=== PATIENT | female | born 1995 | race Caucasian/White ===

== ENCOUNTER 2025-01-27 19:23 | Emergency (ER) | payer OTHER, SELFPAY ==
[2025-01-27 19:30] VITALS: BP 123/72; PULSE 80; RESP 16; TEMP 36.6; O2SAT 99; BMI 31.8
--- OUTSIDE RECORDS SUMMARY | 2025-01-27 19:40 | XMS_ITS | Continuity of Care Document ---
Author Name [facility] Organization [facility] Care Team Providers Care Plant Health Care Technician Name Role Phone [facility] Unavailable Unavailable Problems Combined list of problems from [facility] facilities. It does not include entries that were removed or entered in error. Problem Status Onset Date Problem Type Date of Resolution Comments Source Gestation period, 19 weeks Active Condition 0075C-Ge neral [facility] Rubella non-immune Active Condition 0075C-General [facility] Medications Combined list of outpatient medications from [facility] facilities.Medications provided include 1) outpatient medications from the last 15 months, and 2) patient-reported medications. Medication Details Route Status Patient Instructions Prescription Expires Prescription Number Last Dispense Date Ordering Provider Order Date Order Qty Source acetaminoph en 325 mg oral tablet 1-2 tab(s), Oral, every 6 hr, PRN pain or fever, X 7 days, # 24 tab(s), 0 total refill(s ), Acute, 04/18/21 4:12:00 PM CDT, Pharmacy : [facility] Oral (given by mouth) Complet ed 04/18/2021 2020 24.0 0075A-G eneral [facility] azithromyci n 250 mg oral tablet 0 total refill(s ) Discont inued 01/10/20212020 No Facilit y Access benzonatate 200 mg oral capsule benzonat ate 200 mg oral capsule Start Date: 08/15/20 Stop Date: 01/10/21 Status: Disconti marci Repeat number: 1 Discont inued 01/10/20212020 No Facilit y Access cephalexin 500 mg oral capsule 0 total refill(s ) Discont inued 01/10/20212020 No Facilit y Access Colace 100 mg oral capsule 1 cap(s), Oral, BID, PRN constipa tion, # 180 cap(s), 3 total refill(s ), [facility], Pharmacy : [facility] Oral (given by mouth) Ordered 08/12/2022 2 2021 180.0 0075A-G eneral Peter Hernandez [facility] Diflucan 150 mg oral tablet 1 tab(s), Oral, As Directed , X 1 days, # 1 tab(s), 0 total refill(s ), Acute, 04/12/21 4:13:00 PM CDT, Pharmacy : [facility] Oral (given by mouth) Complet ed 04/12/2021 1 2020 1.0 0075A-G eneral [facility] ETONOGESTRE L 68 MG SUBQ IMPL ETONOGES TREL 68 MG SUBQ IMPL Start Date: 08/21/20 Stop Date: 01/10/21 Status: Disconti marci Repeat number: 1 Discont inued 01/10/20212020 No Facilit y Access fluconazole 150 mg oral tablet 0 total refill(s ) Discont inued 01/10/20212020 No Facilit y Access Loestrin 21 07/18 oral tablet 1 tab(s), Oral, Daily, # 84 tab(s), 3 total refill(s ), [facility], Pharmacy : [facility] Oral (given by mouth) Discont inued 05/22/2021 1 2020 84.0 0075C-G enradhika Hernandez [facility] MiraLax oral powder for reconstitut ion See Instruct ions, Dissolve and drink 1 capful (17g) of powder in 4 to 8 ounces of liquid once daily, # 510 g, 1 total refill(s ), Acute, 08/12/22 12:00:00 AM [employer]IMAL [employer]YSIOLOG[employer] TE[employer]ER, Pharmacy : [facility] ed 08/12/2022 2 2022 510.0 0075A-G eneral [facility] naproxen 500 mg oral tablet 1 tab(s), Oral, BID, with food, # 20 tab(s), 0 total refill(s ), Acute, 04/14/21 12:00:00 AM CDT, Pharmacy : [facility] Oral (given by mouth) Complet ed 04/14/2021 1 2020 20.0 [facility] norethindro ne 0.35 mg oral tablet norethin drone 0.35 mg oral tablet Start Date: 05/14/20 Stop Date: 01/10/21 Status: Disconti nued Repeat number: 1 Discont inued 01/10/20212020 No Facilit y Access PARoxetine 20 mg oral tablet PARoxeti ne 20 mg oral tablet Start Date: 06/13/20 Stop Date: 01/10/21 Status: Disconti nued Repeat number: 1 Discont inued 01/10/20212020 No Facilit y Access Multivitami ns with FA 0.8 mg oral tablet 1 tab(s), Oral, Daily, # 100 tab(s), 3 total refill(s ), [facility], Pharmacy : [facility] Oral (given by mouth) Ordered 2 2021 100.0 0075C-G [facility] Multivitami ns with Vitamin B Complex, Vitamin C, Minerals and L-Methylfol ate oral capsule 1 cap(s), Oral, Daily, # 100 cap(s), 3 total refill(s ), [facility], Pharmacy : [facility] Oral (given by mouth) Complet ed 08/27/2021 1 2021 100.0 0075C-G [facility] sertraline 25 mg oral tablet sertrali ne 25 mg oral tablet Start Date: 05/14/20 Stop Date: 01/10/21 Status: Disconti numartín Repeat number: 1 Discont inued 01/10/20212020 No Facilit y Access Sudafed 12-Hour 120 mg oral tablet, extended release 1 tab(s), Oral, every 12 hr, PRN congesti on, # 20 tab(s), 1 total refill(s ), [facility], Pharmacy : [facility] Oral (given by mouth) Discont inued 05/22/2021 1 2020 20.0 [facility] SUMAtriptan 25 mg oral tablet See Instruct ions, Take 1 tablet by mouth at onset of migraine headache . May repeat dose after 2 hours if needed. Max of 100mg within 24 hours, # 18 tab(s), 1 total refill(s ), Ignacia pinon, Pharmacy : [facility] Discont inued 05/22/2021 1 2020 18.0 [id number][facility] verapamil 120 mg/12 hours oral tablet, extended release 1 tab(s), Oral, Daily, # 90 tab(s), 0 total refill(s ), Ignacia pinon, Pharmacy : [facility] Oral (given by mouth) Discont inued 05/22/2021 1 2020 90.0 [id number][facility] Allergies, Adverse Reactions, Alerts Combined list of allergies from [facility] and [facility] facilities. It does not include entries that were removed or entered in error. Substance Category Reaction Severity Reaction type Status Date Reported Comments Source No Known Allergies Drug allergy (disorder) active 08/21/2020 [place], [place] Results Combined list of recent chemistry, hematology and other laboratory results from [facility] and [facility], ranging from 15 months to all on record, depending upon the facility. Order Name Results Value Reference Range Date Interpretation Specimen Comments Source Screening AFP Tetra Gest. Age on Sobia Date 19.4 wk 08/[address] [place] [address] Screening AFP Tetra Test Results: *Screen Negative * 08/27 [facility] [place] Screening AFP Tetra Results LC Report 08/27 [facility] [place] Screening AFP Tetra Gestat. Age Based On TOMA 08/27 Result Comment: 01/18/2022 [facility] [place] Screening AFP Tetra uE3 Value LC 1.65 ng/mL 08/[address] [place] [address] Screening AFP Tetra hCG MoM LC 0.86 08/27 0075A-Ge neral [facility] [place] [address] m[iU]/mL 08/27 0075A-Ge neral Peter Wood [facility] Screening AFP Tetra AFP MoM LC 0.73 08/27 0075A-Ge neral Peter Wood [facility] Screening AFP Tetra AFP Value LC 36.3 ng/mL 08/27 0075A-Ge neral Peter Wood [facility] [place] Screening AFP Tetra Other LC Comment 08/27 Result Comment: Information Other Indication: No Free Text (Additional Information ): Not Provided Prior with Down Syndrome: No History of NTD: No Prior Down Syndrome/ON TD Screening during current : No Prior First Trimester Testing: No Prior Second Trimester Testing: No Previously Elevated: No 0075A-Ge neral Peter Wood [facility] Screening AFP Tetra Insulin Dep Diabetes LC No 08/27 0075A-Ge neral Peter [facility] [place] Screening AFP Tetra Weight LC 165 [lb_ap] 08/27 0075A-Ge neral [facility] Screening AFP Tetra Race LC Caucasia n 08/27 0075A-Ge neral [facility] Screening AFP Tetra Maternal Age At TOMA LC 25.1 a 08/27 0075A-Ge neral [facility] [place] Screening AFP Tetra Multiple Gestation LC No 08/27 0075A-Ge neral [facility] [place] Screening Comments LC Comment 08/27 Result Comment: Marge Obrien, Ph.D., [facility] Director References: Available Upon Request. Multiples Of Median Cutoffs Abbreviatio n Definitions For AFP Elevations IDD- Insulin Dep Diabetes Roach 2.5 Black 2.8 OSBR- Open Spina Bifida IDD 2.0 Twins 4.5 Risk DSR Cutoff 1:270 DSR- Down Syndrome Risk T18 Cutoff 1:100 T18- Trisomy 18 Down Syndrome and Trisomy 18 screening are considered Investigati onal For further inquiries contact [facility] at [phone] YAYA. Performed At: 01 [facility] [address] [facility] [place], [place] [id number] Deepali Pulido [facility] Ph:[phone] [id number]-Ge neral Peter Wood [facility] Screening AFP Tetra Interpreta tion LC Comment 08/27 Result Comment: Interpretat ion: Screen Negative This result is screen negative for OSB, Down Syndrome and Trisomy 18. The AFP MoM and patient specific risks calculated are based on the gestational age and the clinical information provided. This test can identify up to 80% of open neural tube defects. Closed neural tube defects and some open defects may not be detected by this test. The combination of maternal age, AFP, hCG, uE3, and BANDAR identifies 75-80% of Down Syndrome. The combination of maternal age, AFP, hCG and uE3 identifies 60% of Trisomy 18 pregnancies . The [employer] recommends amniocentes is be offered to women age 35 and older. Recalculati ons are not recommended when gestational dating by LMP and ultrasound are within 10 days. [id number]-Ge neral Peter Wood [facility] Screening AFP Tetra T18 (By Age) LC 1:3999 08/27 0075A-Ge neral Peter [facility] [place] Screening AFP Tetra T18 Risk LC Not increase d 08/27 0075A-Ge neral [facility] Screening AFP Tetra DSR (By Age) 1 IN LC 1026 08/27 0075A-Ge neral [facility] [place] Screening AFP Tetra DSR (Second Trimester) 1 [place] [address] 08/27 0075A-Ge neral [facility] Screening AFP Tetra OSBR [place] 1 [place] [address] 08/27 0075A-Ge neral [facility] Screening AFP Tetra BANDAR MoM LC 0.45 08/27 0075A-Ge neral [facility] [place] Screening AFP Tetra BANDAR Value LC 73.02 pg/mL 08/27 0075A-Ge neral [facility] Screening AFP Tetra uE3 MoM LC 0.85 08/27 0075A-Ge neral [facility] [place] Screening Insulin Dependent. LC N (08/27/21 3:12 PM) 08/27 N 0075A-Ge neral Peter Wood [facility] [place] Screening [place] Date of Calc (YYYYMMDD) .LC [id number] 0075A-Ge neral [facility] Screening Gest Age (Decimal, ##.#).LC 19.3 08/27 0075A-Ge neral Peter Wood [facility] Screening FHX NTD.LC N (08/27/21 3:12 PM) 08/27 N 0075A-Ge neral Peter Wood [facility] Screening Prior With Down Syndrome.L C N (08/27/21 3:12 PM) 08/27 N 0075A-Ge neral Peter Wood [facility] [place] Screening [place] Calculatio n Method. TOMA/EDC (08/27/21 3:12 PM) 08/27 N 0075A-Ge neral Peter Wood [facility] Screening Nbr of Fetuses (#). 1 08/27 0075A-Ge neral Peter Wood [facility] Screening TOMA/EDC Date (YYYYMMDD) . [id number] 0075A-Ge neral Peter Wood [facility] Screening Previously Elevated AFP. N (08/27/21 3:12 PM) 08/27 N 0075A-Ge neral Peter Wood [facility] [place] Screening Other Indication s.LC N (08/27/21 3:12 PM) 08/27 N 0075A-Ge neral Peter Wood [facility] Screening Donor Egg. N (08/27/21 3:12 PM) 08/27 N 0075A-Ge neral Peter Wood [facility] Screening Prior First Trimester Testing. N (08/27/21 3:12 PM) 08/27 N 0075A-Ge neral Peter Wood [facility] Screening Prior Down Syndrome/O NDT Screen. N (08/27/21 3:12 PM) 08/27 N 0075A-Ge neral Peter Wood [facility] [place] Screening AFP Tetra Test Results: See interpre tation. 07/25 0075A-Ge neral Peter Wood [facility] [place] Screening AFP Tetra Gestat. Age Based On TOMA 07/25 Result Comment: 01/18/2022 0075A-Ge neral Peter Wood [facility] [place] Screening AFP Tetra Gest. Age on Sobia Date 14.7 wk 07/25 0075A-Ge neral Peter Wood [facility] Screening AFP Tetra Results LC Report 07/25 0075A-Ge neral Peter Wood [facility] Screening AFP Tetra DSR (Second Trimester) 1 IN LC See interpre tation. 07/25 0075A-Ge neral Peter Wood [facility] [place] Screening AFP Tetra OSBR Risk 1 IN LC See interpre tation. 07/25 0075A-Ge neral Peter Wood [facility] Screening AFP Tetra T18 (By Age) LC 1:3999 07/25 0075A-Ge neral Peter Wood [facility] Screening AFP Tetra T18 Risk LC See interpre tation. 07/25 0075A-Ge neral Peter Wood [facility] Screening AFP Tetra DSR (By Age) 1 IN LC 1026 07/25 0075A-Ge neral Peter Wood [facility] Screening AFP Tetra uE3 Value LC 0.37 ng/mL 07/25 0075A-Ge neral Peter Wood [facility] Screening AFP Tetra hCG MoM LC See interpre tation. 07/25 0075A-Ge neral Peter Wood [facility] [place] [address] m[iU]/mL 07/25 0075A-Ge neral [facility] [place] Screening AFP Tetra BANDAR MoM LC See interpre tation. 07/25 0075A-Ge neral Peter Wood [facility] Screening AFP Tetra BANDAR Value LC 127.57 pg/mL 07/25 0075A-Ge neral Peter Wood [facility] Screening AFP Tetra uE3 MoM LC See interpre tation. 07/25 0075A-Ge neral Peter Wood [facility] Screening Comments LC Comment 07/25 Result Comment: Marge Obrien, Ph.D., [facility] Director References: Available Upon Request. Multiples Of Median Cutoffs Abbreviatio n Definitions For AFP Elevations IDD- Insulin Dep Diabetes Roach 2.5 Black 2.8 OSBR- Open Spina Bifida IDD 2.0 Twins 4.5 Risk DSR Cutoff 1:270 DSR- Down Syndrome Risk T18 Cutoff 1:100 T18- Trisomy 18 Down Syndrome and Trisomy 18 screening are considered Investigati onal For further inquiries contact [facility] at [phone] YAYA. [facility]formed At: [facility] [address] [facility] [place], [place] [id number] Deepali Pulido [facility] Ph:[phone] 0075A-Ge neral Peter Wood [facility] Screening AFP Tetra Interpreta tion LC Comment 07/25 Result Comment: Interpretat ion: An interpretat ion CANNOT be provided for this patient due to one of the following reasons: 1. Gestational age is <15 weeks. Please submit a second sample at the optimum gestational age for screening (16-18 weeks). OR 2. Gestational age is greater than 23 weeks. Recalculati ons are not recommended when gestational dating by LMP and ultrasound are within 10 days. 0075A-Ge neral Peter Wood [facility] [place] Screening AFP Tetra Maternal Age At TOMA LC 25.1 a 07/25 0075A-Ge neral Peter Wood [facility] Screening AFP Tetra AFP MoM LC See interpre tation. 07/25 0075A-Ge neral Peter Wood [facility] Screening AFP Tetra AFP Value LC 15.2 ng/mL 07/25 0075A-Ge neral Peter Wood [facility] Screening AFP Tetra Insulin Dep Diabetes LC No 07/25 0075A-Ge neral Peter Wood [facility] [place] Screening AFP Tetra Weight LC 163 [lb_ap] 07/25 0075A-Ge neral Peter Wood [facility] Screening AFP Tetra Race LC Caucasia n 07/25 0075A-Ge neral Peter Wood [facility] Screening AFP Tetra Other LC Comment 07/25 Result Comment: Information Other Indication: No Free Text (Additional Information ): Not Provided Prior with Down Syndrome: No History of NTD: No Prior Down Syndrome/ON TD Screening during current : No Prior First Trimester Testing: No Prior Second Trimester Testing: No Previously Elevated: No 0075A-Ge neral Peter Wood [facility] [place] Screening AFP Tetra Multiple Gestation LC No 07/25 0075A-Ge neral Peter Wood [facility] Screening TOMA/EDC Date (YYYYMMDD) .LC [id number] 0075A-Ge neral Peter Wood [facility] Screening Prior First Trimester Testing.LC N (07/25/21 2:36 PM) 07/25 N 0075A-Ge neral Peter Wood [facility] Screening Previously Elevated AFP.LC N (07/25/21 2:36 PM) 07/25 N 0075A-Ge neral Peter Wood [facility] [place] Screening Prior Down Syndrome/O NDT Screen.LC N (07/25/21 2:36 PM) 07/25 N [facility] [place] Screening Donor Egg.LC N (07/25/21 2:36 PM) 07/25 N [facility] Screening Other Indication s.LC N (07/25/21 2:36 PM) 07/25 N 0075A-Ge [facility] Screening Nbr of Fetuses (#).LC 1 07/25 0075A-Ge neral [facility] Screening FHX NTD.LC N (07/25/21 2:36 PM) 07/25 N 0075A-Ge [facility] Screening Prior With Down Syndrome.L C N (07/25/21 2:36 PM) 07/25 N 0075A-Ge [facility] [place] Screening Insulin Dependent. LC N (07/25/21 2:36 PM) 07/25 N 0075A-Ge [facility] [place] Screening [place] Calculatio n Method.LC ULTRASOU ND (07/25/21 2:36 PM) 07/25 N 0075A-Ge [facility] Screening [place] Date of Calc (YYYYMMDD) .LC [id number] 0075A-Ge [facility] Infectiou s Disease HIV-1/2 AG/AB 4G CDD LC NEGATIVE 07/25 Result Comment: Performed At: [address] [place] [address] FOR DISEASE DETECTION [id number] [place] [address] [address] [place] [address] FLAQUITA CAROLINA PHD Ph:[phone] [facility] Infectiou s Disease Source of Test. [facility] (07/25/21 2:35 PM) 07/25 N 0075A-Ge [facility] Infectiou s Disease Rubella IgG Antibody Negative 07/25 Interpretiv e Data: POSITIVE (REACTIVE) for anti-Rubell a IgG; presumed immune NEGATIVE (NON REACTIVE) for anti- Rubella IgG; presumed non-immune [facility] Blood Bank ABORh Retype O POS 06/11 0075A-Ge aneudy Green [facility] Blood Bank ABO/Rh Type O POS 06/11 0075A-Ge ruthnv [facility] Blood Bank ABSC Negative ABSC ( 1 4:22 PM) 06/11 N 0075A-Ge aneudy [facility] Hematolog y Monocyte % Auto 6.9 % 2.0 - 8.0 06/11 N 0075A-Ge [facility] Hematolog y Eosinophil % Auto 0.6 % 0.0 - 5.0 06/11 N 0075A-Ge [facility] Hematolog y Basophil % Auto 0.4 % 0.0 - 3.0 06/11 N [facility] Hematolog y Imm. Granulocyt e % 0.20 % 0.00 - 0.50 06/11 N 0075A-Ge aneudy [facility] Hematolog y Neutrophil % Auto 69.1 % 40.0 - 60.0 06/11 H 0075A-Ge aneudy [facility] Hematolog y Lymphocyte % Auto 22.8 % 24.0 - 44.0 06/11 L 0075A-Ge aneudy Hernandez [facility] Hematolog y nRBC % Auto 0.0 % 0.0 - 5.0 06/11 N [facility] Hematolog y nRBC Absolute 0.00 06/11 0075A-Ge aneudy Hernandez [facility] Hematolog y Imm. Granulocyt e Absolute 0.02 06/11 0075A-Ge aneudy [facility] Hematolog y Neutro Absolute 5.69 x10^3/mc L 1.80 - 7.19370 06/11 N 0075A-Ge aneudy [facility] Hematolog y Lymph Absolute 1.88 x10^3/mc L 1.00 - 4.51172 06/11 N 0075A-Ge nersunny [facility] Hematolog y [place] Absolute 0.57 x10^3/mc L 0.00 - 1.16906 06/11 N [facility] Hematolog y Eos Absolute 0.05 x10^3/mc L 0.00 - 0.13755 06/11 N 0075A-Ge [employer] [facility] Hematolog y Baso Absolute 0.03 x10^3/mc L 0.00 - 0.55038 06/11 N 0075A-Ge [employer]EN[employer] [facility] CBRITE CFPS Pt. Race-Fathe r.KS White/Ca ucasian ( 1 4:13 PM) 06/11 N 0075A-Ge [employer]ENICSnv [employer] [facility] CFPS Testing Consent.KS Yes ( 1 4:13 PM) 06/11 N [employer]5A-Ge [employer] CFPS Provider Contact.AIDEE [phone] 06/11 0075A-Ge [employer]ICSnv [employer] [facility] CFPS Family Hx?.KS No ( 1 4:13 PM) 06/11 N 0075A-[employer] [facility] CFPS Pt. Race-Mothe r White/Ca ucasian ( 1 4:13 PM) 06/11 N 0075A-Ge [employer] [facility] C[facility] CFPS Ind. for Test.KS Scrn ( 1 4:13 PM) 06/11 N [employer]-Ayasdinv [employer] [facility] CFPS Pt. Symptoms.K S none 06/11 0075A-Ayasdinv [facility] CBRITE Cystic Fibrosis Scrn.KS See comment 06/11 Result Comment: Test was not performed at reference Laboratory. Esmer has No action noted on this test from [facility]. The provider will be notified and medical imaging directorRN. ROMAN 0075A-Ge [employer] [facility] Immunolog y/Serolog y Hep B Surface Ag nr 06/11 Interpretiv e Data: Nonreactive - Specimen is presumed to be negative for HbsAg. Reactive- Initially reactive specimens should be retested in duplicate to validate the initial test results. Reactive specimens must be confirmed, confirm the result by referencing out HbsAg Confirmator y test. Specimen is reactive for HbsAg. 0075A-Ge [employer] [facility] Immunolog y/Serolog y VZV IgG Scrn Positive 1 *ABN* ( 1 4:13 PM) 06/11 A Interpretiv e Data: POSITIVE (REACTIVE) for anti-Varice lla IgG; presumed immune NEGATIVE (NON REACTIVE) for anti-Varice lla IgG; presumed non-immune 0075A-Ge ruthnv [facility] Hematolog y RBC 5.29 x10^6/mc L 4.00 - 5.99300 06/11 H [facility] Hematolog y WBC 8.24 x10^3/mc L 4.50 - 11.70822 06/11 N 0075A-Ge [facility] Hematolog y MCH 29.9 pg 26.0 - 34.0 06/11 N 0075A-Ge [facility] Hematolog y MCV 83.9 fL 80.0 - 100.0 06/11 N 0075A-Ge [facility] Hematolog y Hematocrit 44.40 % 36.00 - 46.00 06/11 N 0075A-Ge neral [facility] Hematolog y Hemoglobin 15.8 g/dL 12.0 - 16.0 06/11 N [facility] Hematolog y MPV 9.8 fL 7.4 - 10.4 06/11 N 0075A-Ge [facility] Hematolog y Platelets 209 x10^3/mc L 150 - [phone] 06/11 N 0075A-Ge [facility] Hematolog y RDW CV 13.0 % 11.5 - 14.5 06/11 N 0075A-Ge [facility] Hematolog y MCHC 35.6 g/dL 31.0 - 37.0 06/11 N 0075A-Ge [facility] Chemistry Path Review Electropho resis.INOCENCIO C SEE 06/11 Result Comment: RESULT COMMENT(S): No abnormal hemoglobin variants identified by Capillary Zone Electrophor esis (CZE). NOTE: A normal study by CZE does not exclude thalassemia . Certain types of alpha thalassemia are not detected by electrophor esis and may require additional testing for evaluation of unexplained microcystos is (if clinically indicated). Detection of beta thalassemia may be masked by concomitant iron deficiency and this study may need to be repeated if micro cytosis persists after iron repletion. [id number]-Ge [facility] Chemistry Hemoglobin F.[facility] <0.5 % 06/11 0075A-Ge [facility] Chemistry Hemoglobin A2.[facility] 2.7 % 06/11 0075A-[facility] Chemistry Hemoglobin A.[facility] 97.3 % 06/11 0075A-[facility] Infectiou s Disease Rubella IgG Antibody Negative 06/11 Interpretiv e Data: POSITIVE (REACTIVE) for anti-Rubell a IgG; presumed immune NEGATIVE (NON REACTIVE) for anti- Rubella IgG; presumed non-immune [facility]5A-[facility] [place] [address].00 m[iU]/mL 06/11 Interpretiv e Data: NEGATIVE FOR 0.5-4.9 mIU/mL BORDERLINE, REPEAT TEST IN 48 HOURS 5 - 25 mIU/mL POSITIVE FOR +>25 mIU/mL gestational age 1-10 weeks 44.7 - 833732 mIU/mL gestational age 10-15 weeks 22354 - 960799 mIU/mL gestational age 16-22 weeks 7480.0 -512595 mIU/mL gestational age 23-40 weeks 1531.1 -219022 mIU/mL Assay not for tumor marker testing. Heterophili c antibodies in serum or plasma samples may cause interferenc e in immunoassay s. These antibodies may be present in blood samples from individuals regularly exposed to animals or who have been treated with animal serum products. Results which are inconsisten t with clinical observation s indicate the need for additional testing. Please order SCANTIBODIE S TEST Biotin in blood or other samples taken from patients who are ingesting high levels of biotin in dietary supplements may cause clinically significant incorrect lab test results. This can cause falsely high or falsely low results depending on the test which may lead to inappropria te patient management or misdiagnosi s. 0075A-[facility] Infectiou s Disease HIV-1/2 AG/AB 4G CDD LC NEGATIVE 06/11 Result Comment: Performed At: 1 [facility] [id number] [place] [address] [address] [place] [address] FLAQUITA FIGUEROA PHD Ph:[phone] 0075A-Ge [employer] [facility] Infectiou s Disease Source of Test.[facility] ( 1 4:13 PM) 06/11 N 0075A-Ge [employer] [facility] Immunolog y/Serolog y RPR Non-Reac tive 2 ( 1 4:13 PM) 06/11 N Interpretiv e Data: FALSE POSITIVE REACTIONS CAN OCCUR WITH MONO, VIRAL PNEUMONIA,H ISTORY OF DRUG ABUSE, LUPUS ERYTHEMATOS US, SMALLPOX VACCINATION S, RHEUMOID ARTHRITIS, MALARIA, VACCINIA, AND WOMEN.FALSE NEGATIVE RESULTS ARE SEEN IN ICUBATORY PRIMARY AND LATE SYPHILIS. FALSE NEGATIVE RESULTS MAY OCCUR IN SECONDARY SYPHILIS WHEN T ITERS ARE TOO HIGH FOR RPR TESTING. [employer] Note 1: ALL SPECIMENS PRODUCING A REACTIVE RPR RESULTS WILL BE FURTHER TESTED BY THE TP-TA (TREPONEMA PALLIDUM-PA RTICAL AGGLUTINATI ON) AT THE [facility]. [employer] M[employer] Note 2: REQUESTS FOR TP-PA/FTA ON SPECIMENS THAT ARE NONREACTIVE BY THE RPR TEST WILL NOT BE HONORED UNLESS [facility] STATES THAT LATE SYPHILIS IS SUSPECTED IN COMMENTS. 0075A-Ge [employer] [facility] Chemistry Iron % Sat 32 13 - 59 06/11 N 0075A-Ge [facility] Chemistry UIBC, 195.0 ug/dL 34.0 - 105.0 06/11 H 0075A-Ge [facility] Chemistry Ferritin Lvl 116.70 ng/mL 13.00 - 150.00 06/11 N 0075A-Ge [facility] Chemistry TIBC 285 265 - 497 06/11 N 0075A-Ge [facility] Chemistry Iron 90.0 ug/dL 37.0 - 170.0 06/11 N 0075A-Ge [facility] Chemistry Beta hCG Qnt 84.44 m[iU]/mL 05/17 Interpretiv e Data: NEGATIVE FOR 0.5-4.9 mIU/mL BORDERLINE, REPEAT TEST IN 48 HOURS 5 - 25 mIU/mL POSITIVE FOR +>25 mIU/mL gestational age 1-10 weeks 44.7 - 022424 mIU/mL gestational age 10-15 weeks 52109 - 370270 mIU/mL gestational age 16-22 weeks 7480.0 -423243 mIU/mL gestational age 23-40 weeks 1531.1 -163447 mIU/mL Assay not for tumor marker testing. Heterophili c antibodies in serum or plasma samples may cause interferenc e in immunoassay s. These antibodies may be present in blood samples from individuals regularly exposed to animals or who have been treated with animal serum products. Results which are inconsisten t with clinical observation s indicate the need for additional testing. Please order SCANTIBODIE S TEST Biotin in blood or other samples taken from patients who are ingesting high levels of biotin in dietary supplements may cause clinically significant incorrect lab test results. This can cause falsely high or falsely low results depending on the test which may lead to inappropria te patient management or misdiagnosi s. 0075A-Ge [facility] Chemistry Beta hCG Qnt 19.64 m[iU]/mL 05/15 Interpretiv e Data: NEGATIVE FOR 0.5-4.9 mIU/mL BORDERLINE, REPEAT TEST IN 48 HOURS 5 - 25 mIU/mL POSITIVE FOR +>25 mIU/mL gestational age 1-10 weeks 44.7 - 114537 mIU/mL gestational age 10-15 weeks 10507 - 771397 mIU/mL gestational age 16-22 weeks 7480.0 -160182 mIU/mL gestational age 23-40 weeks 1531.1 -021764 mIU/mL Assay not for tumor marker testing. Heterophili c antibodies in serum or plasma samples may cause interferenc e in immunoassay s. These antibodies may be present in blood samples from individuals regularly exposed to animals or who have been treated with animal serum products. Results which are inconsisten t with clinical observation s indicate the need for additional testing. Please order SCANTIBODIE S TEST Biotin in blood or other samples taken from patients who are ingesting high levels of biotin in dietary supplements may cause clinically significant incorrect lab test results. This can cause falsely high or falsely low results depending on the test which may lead to inappropria te patient management or misdiagnosi s. 0075A-[facility] Molecular Infectiou s Disease Neisseria gonorrhoea e RAJ LC Negative 04/11 Result Comment: Performed At: 01 [facility] [address] [place], [place] [id number] Sandeep Kirkland MD Ph:[phone] [facility]75[facility] Molecular Infectiou s Disease Chlamydia trach RAJ Negative 04/11 [facility] Urinalysi s Trichomona s, Wet Prep Not Reported ( 1:53 PM) 04/11 N 0075A[facility] Urinalysi s Clue Cells, Wet Prep None Seen ( 1:53 PM) 04/11 N 0075A[facility] Urinalysi s WBC, Wet Prep Many *ABN* ( 1:53 PM) 04/11 A 0075A[facility] Urinalysi s Epi Cells, Wet Prep Many *ABN* ( 1:53 PM) 04/11 A 0075A[facility] Urinalysi s KENNETH Fungal Present 16 *ABN* ( 1:53 PM) 04/11 A Interpretiv e Data: Reference Range Interpretat ion: Fungal Present is equivalent to Fungal Elements seen Fungal Not Present is equivalent to Fungal Elements not seen [facility] Hematolog y MCHC 34.4 g/dL 31.0 - 37.0 04/11 N 0075A[facility] Hematolog y Platelets 192 x10^3/mc L 150 - 266050 04/11 N 0075A[facility] Hematolog y RDW CV 12.7 % 11.5 - 14.5 04/11 N 0075A[facility] Hematolog y MPV 10.4 fL 7.4 - 10.4 04/11 N 0075A[facility] Hematolog y MCV 85.2 fL 80.0 - 100.0 04/11 N 0075A[facility] Hematolog y MCH 29.3 pg 26.0 - 34.0 04/11 N 0075A-Ge [facility] Hematolog y Hematocrit 45.90 % 36.00 - 46.00 04/11 N 0075A-Ge [facility] Hematolog y Hemoglobin 15.8 g/dL 12.0 - 16.0 04/11 N 0075A-Ge [facility] Hematolog y WBC 7.45 x10^3/mc L 4.50 - 11.94857 04/11 N 0075A-Ge [facility] Hematolog y RBC 5.39 x10^6/mc L 4.00 - 5.95744 04/11 H 0075A-Ge [facility] Chemistry AGAP 13 10 - 04/11 N 0075A-Ge [facility] Chemistry CO2 25 mmol/L 22 - 29 04/11 N 0075A-Ge [facility] Chemistry Chloride 103 mmol/L 98 - 107 04/11 N 0075A-Ge [facility] Chemistry Osmo Calc 274 mOsm/kg 261 - 284 04/11 N 0075A-Ge [facility] Chemistry Calcium 9.60 mg/dL 8.60 - 10.00 04/11 N 0075A-Ge [facility] Chemistry BUN 14.0 mg/dL 6.0 - 20.0 04/11 N 0075A-Ge [facility] Chemistry Glucose Lvl 93 mg/dL 74 - 100 04/11 N 0075A-Ge [facility] Chemistry Potassium Lvl 3.86 mmol/L 3.50 - 5.10 04/11 N 0075A-Ge [facility] Chemistry Sodium 137 mmol/L 136 - 145 04/11 N 0075A-Ge [facility] Chemistry BUN/Creat Ratio 19.7 04/11 0075A-Ge [facility] Chemistry Creatinine Level 0.71 mg/dL 0.52 - 1.04 04/11 N 0075A-Ge [facility] Hematolog y nRBC % Auto 0.0 % 0.0 - 5.0 04/11 N 0075A[facility] Hematolog y Baso Absolute 0.03 x10^3/mc L 0.00 - 0.26488 04/11 N 0075A[facility] Hematolog y Imm. Granulocyt e Absolute 0.01 04/11 0075A[facility] Hematolog y nRBC Absolute 0.00 04/11 0075A[facility] Hematolog y Lymph Absolute 2.25 x10^3/mc L 1.00 - 4.54206 04/11 N 0075A[facility] Hematolog y Eos Absolute 0.06 x10^3/mc L 0.00 - 0.33590 04/11 N 0075A[facility] Hematolog y [place] Absolute 0.47 x10^3/mc L 0.00 - 1.95889 04/11 N 0075A[facility] Hematolog y Monocyte % Auto 6.3 % 2.0 - 8.0 04/11 N 0075A[facility] Hematolog y Basophil % Auto 0.4 % 0.0 - 3.0 04/11 N 0075A[facility] Hematolog y Eosinophil % Auto 0.8 % 0.0 - 5.0 04/11 N 0075A[facility] Hematolog y Neutro Absolute 4.63 x10^3/mc L 1.80 - 7.75888 04/11 N 0075A[facility] Hematolog y Imm. Granulocyt e % 0.10 % 0.00 - 0.50 04/11 N 0075A[facility] Hematolog y Neutrophil % Auto 62.2 % 40.0 - 60.0 04/11 H 0075A[facility] Hematolog y Lymphocyte % Auto 30.2 % 24.0 - 44.0 04/11 N 0075A[facility] Chemistry eGFR Non-AA 119.2 mL/min 04/11 N 0075A-[facility] Chemistry eGFR AA 138.2 mL/min 04/11 N 0075A[facility] Urinalysi s UA Spec Wingate 1.023 04/11 0075A[facility] Urinalysi s UA Color Yellow ( 12:22 PM) 04/11 N 0075A[facility] Urinalysi s UA Appear Clear ( 12:22 PM) 04/11 N 0075A[facility] Urinalysi s UA Blood TRACE 04/11 [facility] Urinalysi s UA Bili Negative mg/dL 04/11 N 0075A[facility] Urinalysi s UA Urobilinog en Normal mg/dL 04/11 N 0075A[facility] Urinalysi s UA Glucose Negative mg/dL 04/11 N [facility] Urinalysi s UA Protein NEGATIVE 04/11 00[facility] Urinalysi s UA Ketones Negative mg/dL 04/11 N 0075A[facility] Urinalysi s UA pH 5.5 5.0 - 8.0 04/11 N 0075A[facility] Urinalysi s UA Nitrite Negative ( 12:22 PM) 04/11 N 0075A[facility] Urinalysi s UA Leuk Esterase Small *ABN* ( 12:22 PM) 04/11 A 0075A[facility] Urinalysi s UA Clarity Clear ( 12:22 PM) 04/11 N [facility] Urinalysi s UA Micro Ind? Indicate d *NA* ( 12:22 PM) 04/11 0075A[facility] Chemistry Beta hCG, Urine Qual Negative ( 1 12:22 PM) 04/11 N 0075A-Ge [facility] Urinalysi s UA RBC 2 /HPF 0 - 3 04/11 N 0075A-[facility] Urinalysi s UA WBC 9 /HPF 0 - 3 04/11 H 0075A-Ge [place] [facility] Urinalysi s UA Hyaline Cast 3 /LPF 0 - 2 04/11 H 0075A-[facility] Urinalysi s UA Bacteria 1+ 04/11 0075A-Ge [facility]eral [facility] Urinalysi s UA Epi Squam 10 /HPF 0 - 4 04/11 H [facility] Chemistry Beta hCG, Urine Qual Negative (02/18/21 11:16 AM) 02/18 N 0075A[facility] Immunolog y/Serolog y QuantiFERO N Plus TB2 Ag Value 0.20 IU/mL 10/23 0075A-Ge [facility] Immunolog y/Serolog y QuantiFERO N NIL Value 0.09 IU/mL 10/23 0075A-Ge [facility] Immunolog y/Serolog y QuantiFERO N Mitogen Value 6.05 IU/mL 10/23 0075A-Ge [facility] Immunolog y/Serolog y QuantiFERO N-TB Gold Plus Negative 23 (10/23/20 2:00 PM) 10/23 N Interpretiv e Data: QuantiFERON -TB Gold Plus results are interpreted as follows: POSITIVE - M.tuberculo sis infection likely NEGATIVE - M.tubercilo sis infection NOT likely INDETERMINA TE - Likelihood if M.tuberculo sis infection cannot be determined 0075A-Ge [facility] Immunolog y/Serolog y QuantiFERO N Plus TB1 Ag Value 0.16 IU/mL 10/23 0075A-Ge [facility] Vital Signs Combined list of inpatient and outpatient Vital Signs from Department of Defense and Veterans Affairs, ranging from 12 months to all on record, depending upon the facility. Vital Sign Value Date Comments Source Systolic Blood Pressure 125 mm[Hg] 07/15/20 21 18:17:00 [facility] Diastolic Blood Pressure 76 mm[Hg] 021 18:17:00 [facility] Peripheral Pulse Rate 84 bpm 01/10/2021 18:17:00 [facility] Mean Arterial Pressure, Calc 92 mm[Hg] 01/10/2021 18:17:00 [facility] Temperature Oral 36.9 Gely 01/10/2021 18:17:00 [facility] Respiratory Rate 18 br/min 01/10/2021 18:17:00 [facility] Systolic Blood Pressure 111 mm[Hg] 07/25/19 19:17:00 [facility] Diastolic Blood Pressure 74 mm[Hg] 19:17:00 [facility] Mean Arterial Pressure, Calc 86 mm[Hg] 07/25/2021 19:17:00 [facility] Peripheral Pulse Rate 103 bpm 07/25/2021 19:17:00 [facility] Peripheral Pulse Rate 97 bpm 08/27/2021 20:48:00 [facility] Mean Arterial Pressure, Calc 90 mm[Hg] 08/27/2021 20:48:00 [facility] Systolic Blood Pressure 117 mm[Hg] 08/28/19 20:48:00 [facility] Diastolic Blood Pressure 76 mm[Hg] 022 20:48:00 [facility] Systolic Blood Pressure 131 mm[Hg] 02/19/20 16:12:00 [facility] Diastolic Blood Pressure 79 mm[Hg] 021 16:12:00 [facility] Mean Arterial Pressure, Calc 96 mm[Hg] 02/18/2021 16:12:00 [facility] BP Site Left arm 02/18/2021 16:12:00 [facility] Peripheral Pulse Rate 64 bpm 02/18/2021 16:12:00 [facility] Respiratory Rate 16 br/min 02/18/2021 16:12:00 [facility] Blood Pressure Manual Automatic 02/18/2021 16:12:00 [facility] Temperature Oral 37.1 Gely 04/11/2021 17:14:00 [facility] Systolic Blood Pressure 126 mm[Hg] 04/11/20 17:14:00 [facility] Diastolic Blood Pressure 76 mm[Hg] 17:14:00 [facility] Peripheral Pulse Rate 83 bpm 04/11/2021 17:14:00 [facility] Respiratory Rate 22 br/min 04/11/2021 17:14:00 [facility] Systolic Blood Pressure 124 mm[Hg] 05/15/20 19:48:00 [facility] Diastolic Blood Pressure 74 mm[Hg] 19:48:00 [facility] Peripheral Pulse Rate 81 bpm 05/15/2021 19:48:00 [facility] Mean Arterial Pressure, Calc 91 mm[Hg] 05/15/2021 19:48:00 [facility] Blood Pressure Manual Automatic 05/15/2021 19:48:00 [facility] BP Site Left arm 05/15/2021 19:48:00 [facility] Respiratory Rate 18 br/min 05/15/2021 19:48:00 [facility] Encounters Combined list of: 1) Encounters from Department of Veterans Affairs facilities going backup to the last 18 months, not all VA inpatient encounters are included; 2) Encounters from the Department of Defense facilities going backup to 280 months. Location Location Details Encounter Type Encounter Number Reason For Visit Attending Provider ADM Date DC Date Status Disposition Source General Peter Hernandez [facility] Alejandro Hernandez [place]([facility] M01A Cards) TELE CONSULT [id number] Notes Entered by: NESTOR MARTIN 08 Aug 2020 1402 ------- ------- ------- ------- -- Speak with EVELIN Mohr 08/08 [place]) OUTPATIENT [id number] Nexplan on inserti on only DICK LAUGHLIN 08/17 Released w/o Limitations [place]) OUTPATIENT [id number] physica l and tb shot CESAR FLEMING 10/18 Released w/o Limitations [place] Procedures Combined list of: 1) Procedures from Department of Veterans Affairs facilities going back up to thelast 18 months, not all [place] non-surgical procedures are included; 2) All procedures from the Department of Defense facilities. Procedure Procedure Type Code Date Perfomer Comments [facility] e Appendectomy Appendectomy (procedure) [id number] 0075C-Gene [facility] Debridement Debridement (procedure) [id number] Staph infection of left leg. 0075C-[facility] SYRINGE, WITH OR WITHOUT NEEDLE, EACH 021 [facility] Delivery Implant, Insertion DICK LAUGHLIN Self-management plan developed in collaboration with patient/family; provided with [facility] care plan, self-care, & resource sheet. [facility] Etonogestrel (contraceptive) implant system, including implant and supplies DICK LAUGHLIN Needle, sterile, any size, each DICK LAUGHLIN Syringe, with or without needle, each DICK LAUGHLIN [facility] Social History Combined list of available smoking, tobacco, and other social history from Department of Defense and Veterans Affairs facilities. Social History Type Response Date Comment [facility] e Sex Representation Female (finding) 09/19/2020 Unknown Organization Tobacco Exposure to Secondhand Smoke: No. Never-cigarette user Cigarette use:. Never-other tobacco user (not cigarettes) Other Tobacco use:. [facility] Sexual Orientation Ambula tory Pharmacy Gender identity [facility]ulator y Pharmacy This section is an empty social history section. [facility] Assessment and Plan Combined list of future care activities from Department of Defense and Veterans Affairs facilities (e.g., assessment and plan notes, appointments, orders, and referrals). Additional future care activities may be listed in the Plan of Care section. Result Assessment and Plan Date Source Assessment and Plan Extracted from:Title : Summary Document Author: JADE MORALES Govind Date: 01/24/22 Flo Sadler : 1995 Age: 26 Years Flo Sadler : [birth year] Summary (Date of Report: 01/24/22) G 2 P 1 (1,0,0,1) Gestation: -- LMP (from pt. history): -- TOMA: 01/18/2022 TOMA/EGA Method: Reported EGA/TOMA EGA: 40 weeks 6 days Flo Sadler : [birth year] Antepartum Note No antepartum notes have been documented Flo Sadler : [birth year] Problems (Active Problems Only) (SNOMED CT: 696492788, Onset: 04/03/21) Rubella non-immune (SNOMED CT: 112161101, Onset: --) Gestation period, 19 weeks ([address]: 64141193, Onset: --) Flo Sadler : [birth year] Risk Factors and Genetic Screening All Results Documented Since 04/03/2021 Risk Factors (Current ) Unique Risk Factors: None Ethnic Screening Baby's father: Other Self: Genetic Disorders Screening No genetic disorders have been recorded. Flo Sadler : [birth year] Gestational Age (EGA) and TOMA * Note: EGA calculated as of 01/24/2022 TOMA: 01/18/2022 EGA*: 40 weeks 6 days Type: Authoritative Method Date: 07/25/2021 Method: Reported EGA/TOMA (07/25/2021) Confirmation: Confirmed Description: Due date Comments: Had US in [place]. TOMA changed to JAN 17. CWD US done 07/25/21 by tk Entered by: LAURA ZIMMERMAN CNM on 07/25/2021 Other TOMA Calculations for this : Method: Last Menstrual Period Method Date: 04/03/2021 TOMA: 01/08/2022 EGA (At Entry): 10 weeks 6 days Type: Non-Authoritative Comments: -- Entered by: JADE MORALES on 07/25/2021 Fol Sadler : [birth year] Measurements Pre- Weight: 74.84 kg 08/27/21 (19 weeks) Recent Weight Measured: 74.8 kg 08/27/21 (19 weeks) Height/Length Measured: 160 cm 08/27/21 (19 weeks) Body Mass Index Measured: 29.22 kg/m2 08/27/21 (19 weeks) Flo Sadler: [birth year] Exam and Notes Date VASILIY Burnham PTL S/S Cervix BP Weight Urine Baby cm Dil Eff(%) Sta mmHg lbs kg Gluc Prot FHR Activity Fet Pres 08/27/21 19w3d -- None -- -- -- 117/76 *164... -- -- Baby A = Present -- 07/25/21 14w5d 16 None -- -- -- 111/74 *163... -- -- Baby A = Present -- 05/15/21 4w4d -- -- -- -- -- 124/74 -- -- -- -- -- -- 04/11/21 -- -- -- -- -- -- 126/76 *165... -- -- -- -- -- * Weight 08/27/2021 164.934(lbs) 74.8(kg) 07/25/2021 163.170(lbs) 74(kg) 04/11/2021 165.375(lbs) 75(kg) Flo Sadler: [birth year] Physical Exams Physical Exam Mental Status Orientation Assessment: Oriented x 4 (04/11/21) Cardiovascular Cardiovascular Symptoms: None (04/11/21) Respiratory Respiratory Symptoms: None (04/11/21) Respirations: Unlabored (04/11/21) Respiratory Pattern: Regular (04/11/21) Oxygen Therapy: Room air (04/11/21) SpO2: 97 % (05/15/21) Gastrointestinal GI Symptoms: Diarrhea, Other: low abdominal pain , normal appetite (04/11/21) Integumentary Skin Color: Normal for ethnicity (04/11/21) Skin Description: Dry (04/11/21) Skin Temperature: Warm (04/11/21) Flo Sadler : [birth year] Blood Types and Anti-D Immune Globulin Blood Type and Screen Mother ABO/Rh: -- Mother Antibody Screen: -- Father of Baby ABO/Rh: -- Father of Baby Antibody Screen: -- Anti-D Immune Globulin Rho(D) Initial Status: -- Rho(D) 28 Week Status: -- Rho(D) Dates Given: -- Flo Sadler : [birth year] Tests and Lab Results Results ending with 'TR' have been keyed in by the practice or interpreted manually. Result Date: Estimated weeks post onset will display next to actual result date. Test Result Date Ref Range Internal QC OK? Yes 04/11/21 (0 weeks) Beta hCG, Urine Qual Negative 04/11/21 (0 weeks) Negative UA Clarity Clear 04/11/21 (0 weeks) UA Micro Ind? (N) Indicated 04/11/21 (0 weeks) UA Protein (N) NEGATIVE mg/dL 04/11/21 (0 weeks) UA Leuk Esterase (A) Small 04/11/21 (0 weeks) Negative UA Ketones Negative mg/dL 04/11/21 (0 weeks) UA Spec [place] (N) 1.023 04/11/21 (0 weeks) UA Color Yellow 04/11/21 (0 weeks) Yellow UA pH 5.5 04/11/21 (0 weeks) (5.0 - 8.0) UA Blood (N) TRACE mg/dL 04/11/21 (0 weeks) UA Appear Clear 04/11/21 (0 weeks) Clear UA Nitrite Negative 04/11/21 (0 weeks) Negative UA Bili Negative mg/dL 04/11/21 (0 weeks) Negative UA Urobilinogen Normal mg/dL 04/11/21 (0 weeks) Normal UA Glucose Negative mg/dL 04/11/21 (0 weeks) UA Epi Squam (H) 10 /HPF 04/11/21 (0 weeks) (0 - 4) UA WBC (H) 9 /HPF 04/11/21 (0 weeks) (0 - 3) UA RBC 2 /HPF 04/11/21 (0 weeks) (0 - 3) UA Bacteria (N) 1+ /HPF 04/11/21 (0 weeks) UA Hyaline Cast (H) 3 /LPF 04/11/21 (0 weeks) (0 - 2) Hemoglobin 15.8 g/dL 04/11/21 (0 weeks) (12.0 - 16.0) WBC 7.45 x10^3/mcL 04/11/21 (0 weeks) (4.50 - 11.00) MCH 29.3 pg 04/11/21 (0 weeks) (26.0 - 34.0) MCV 85.2 fL 04/11/21 (0 weeks) (80.0 - 100.0) MCHC 34.4 g/dL 04/11/21 (0 weeks) (31.0 - 37.0) MPV 10.4 fL 04/11/21 (0 weeks) (7.4 - 10.4) RDW CV 12.7 % 04/11/21 (0 weeks) (11.5 - 14.5) RBC (H) 5.39 x10^6/mcL 04/11/21 (0 weeks) (4.00 - 5.20) Hematocrit 45.90 % 04/11/21 (0 weeks) (36.00 - 46.00) Platelets 192 x10^3/mcL 04/11/21 (0 weeks) (150 - 440) Neutrophil % Auto (H) 62.2 % 04/11/21 (0 weeks) (40.0 - 60.0) Neutro Absolute 4.63 x10^3/mcL 04/11/21 (0 weeks) (1.80 - 7.70) Eosinophil % Auto 0.8 % 04/11/21 (0 weeks) (0.0 - 5.0) Lymphocyte % Auto 30.2 % 04/11/21 (0 weeks) (24.0 - 44.0) [place] Absolute 0.47 x10^3/mcL 04/11/21 (0 weeks) (0.00 - 1.00) Baso Absolute 0.03 x10^3/mcL 04/11/21 (0 weeks) (0.00 - 0.70) Basophil % Auto 0.4 % 04/11/21 (0 weeks) (0.0 - 3.0) nRBC % Auto 0.0 % 04/11/21 (0 weeks) (0.0 - 5.0) Eos Absolute 0.06 x10^3/mcL 04/11/21 (0 weeks) (0.00 - 0.70) Lymph Absolute 2.25 x10^3/mcL 04/11/21 (0 weeks) (1.00 - 4.80) Monocyte % Auto 6.3 % 04/11/21 (0 weeks) (2.0 - 8.0) Imm. Granulocyte Absolute (N) 0.01 04/11/21 (0 weeks) Imm. Granulocyte % 0.10 % 04/11/21 (0 weeks) (0.00 - 0.50) nRBC Absolute (N) 0.00 04/11/21 (0 weeks) Clue Cells, Wet Prep None Seen 04/11/21 (0 weeks) None Seen Epi Cells, Wet Prep (A) Many 04/11/21 (0 weeks) Trichomonas, Wet Prep Not Reported 04/11/21 (0 weeks) WBC, Wet Prep (A) Many 04/11/21 (0 weeks) KENNETH (A) Fungal Present 04/11/21 (0 weeks) Fungal Not Pres Osmo Calc 274 mOsm/kg 04/11/21 (0 weeks) (261 - 284) Chloride 103 mmol/L 04/11/21 (0 weeks) (98 - 107) Sodium 137 mmol/L 04/11/21 (0 weeks) (136 - 145) BUN/Creat Ratio (N) 19.7 04/11/21 (0 weeks) CO2 25 mmol/L 04/11/21 (0 weeks) (22 - 29) AGAP 13 04/11/21 (0 weeks) (10 - 20) Glucose Lvl 93 mg/dL 04/11/21 (0 weeks) (74 - 100) BUN 14.0 mg/dL 04/11/21 (0 weeks) (6.0 - 20.0) Calcium 9.60 mg/dL 04/11/21 (0 weeks) (8.60 - 10.00) Creatinine Level 0.71 mg/dL 04/11/21 (0 weeks) (0.52 - 1.04) Potassium Lvl 3.86 mmol/L 04/11/21 (0 weeks) (3.50 - 5.10) eGFR Non-AA 119.2 mL/min 04/11/21 (0 weeks) >=60.0 eGFR AA 138.2 mL/min 04/11/21 (0 weeks) >=60.0 Neisseria gonorrhoeae RAJ LC (N) Negative 04/11/21 (0 weeks) Negative Chlamydia trach RAJ (N) Negative 04/11/21 (0 weeks) Negative Beta hCG Qnt (N) 19.64 mIU/mL 05/15/21 (4 weeks) Beta hCG Qnt (N) 84.44 mIU/mL 05/17/21 (4 weeks) Test Result Date Ref Range Source of Test.[facility] 06/11/21 (8 weeks) HIV-1/2 AG/AB 4G CDD LC (N) NEGATIVE 06/11/21 (8 weeks) NEGATIVE Cystic Fibrosis Scrn.KS (N) See comment 06/11/21 (8 weeks) CFPS Testing Consent.KS Yes 06/11/21 (8 weeks) CFPS Pt. Symptoms.KS (U) none 06/11/21 (8 weeks) CFPS Pt. Race-Mother White/ 06/11/21 (8 weeks) CFPS Pt. Race-Father.KS White/ 06/11/21 (8 weeks) CFPS Provider Contact.KS (U) [phone] 06/11/21 (8 weeks) CFPS Ind. for Test.KS Scrn 06/11/21 (8 weeks) CFPS Family Hx?.KS No 06/11/21 (8 weeks) RBC (H) 5.29 x10^6/mcL 06/11/21 (8 weeks) (4.00 - 5.20) MPV 9.8 fL 06/11/21 (8 weeks) (7.4 - 10.4) RDW CV 13.0 % 06/11/21 (8 weeks) (11.5 - 14.5) Hematocrit 44.40 % 06/11/21 (8 weeks) (36.00 - 46.00) Platelets 209 x10^3/mcL 06/11/21 (8 weeks) (150 - 440) Hemoglobin 15.8 g/dL 06/11/21 (8 weeks) (12.0 - 16.0) WBC 8.24 x10^3/mcL 06/11/21 (8 weeks) (4.50 - 11.00) MCH 29.9 pg 06/11/21 (8 weeks) (26.0 - 34.0) MCV 83.9 fL 06/11/21 (8 weeks) (80.0 - 100.0) MCHC 35.6 g/dL 06/11/21 (8 weeks) (31.0 - 37.0) Lymph Absolute 1.88 x10^3/mcL 06/11/21 (8 weeks) (1.00 - 4.80) Eos Absolute 0.05 x10^3/mcL 06/11/21 (8 weeks) (0.00 - 0.70) nRBC % Auto 0.0 % 06/11/21 (8 weeks) (0.0 - 5.0) Basophil % Auto 0.4 % 06/11/21 (8 weeks) (0.0 - 3.0) Baso Absolute 0.03 x10^3/mcL 06/11/21 (8 weeks) (0.00 - 0.70) [place] Absolute 0.57 x10^3/mcL 06/11/21 (8 weeks) (0.00 - 1.00) Lymphocyte % Auto (L) 22.8 % 06/11/21 (8 weeks) (24.0 - 44.0) Eosinophil % Auto 0.6 % 06/11/21 (8 weeks) (0.0 - 5.0) Neutro Absolute 5.69 x10^3/mcL 06/11/21 (8 weeks) (1.80 - 7.70) Monocyte % Auto 6.9 % 06/11/21 (8 weeks) (2.0 - 8.0) Neutrophil % Auto (H) 69.1 % 06/11/21 (8 weeks) (40.0 - 60.0) nRBC Absolute (N) 0.00 06/11/21 (8 weeks) Imm. Granulocyte % 0.20 % 06/11/21 (8 weeks) (0.00 - 0.50) Imm. Granulocyte Absolute (N) 0.02 06/11/21 (8 weeks) Iron 90.0 ug/dL 06/11/21 (8 weeks) (37.0 - 170.0) Ferritin Lvl 116.70 ng/mL 06/11/21 (8 weeks) (13.00 - 150.00) UIBC, (H) 195.0 ug/dL 06/11/21 (8 weeks) (34.0 - 105.0) TIBC 285 06/11/21 (8 weeks) (265 - 497) Iron % Sat 32 06/11/21 (8 weeks) (13 - 59) Beta hCG Qnt (N) 15260.00 mIU/mL 06/11/21 (8 weeks) ABSC Negative ABSC 06/11/21 (8 weeks) ABO/Rh Type (U) O POS 06/11/21 (8 weeks) ABORh Retype (U) O POS 06/11/21 (8 weeks) VZV IgG Scrn (A) Positive 06/11/21 (8 weeks) Negative Rubella IgG Antibody (N) Negative 06/11/21 (8 weeks) Hep B Surface Ag (N) nr 06/11/21 (8 weeks) RPR Non-Reactive 06/11/21 (8 weeks) Non-Reactive Hemoglobin A.[facility] (N) 97.3 % 06/11/21 (8 weeks) 94.5-98.2 Path Review Electrophoresis.[facility] (N) SEE 06/11/21 (8 weeks) Hemoglobin F.[facility] (N) <0.5 % 06/11/21 (8 weeks) 0.0-2.0 Hemoglobin A2.[facility] (N) 2.7 % 06/11/21 (8 weeks) 1.8-3.5 Source of Test. OB Clinic 07/25/21 (14 weeks) HIV-1/2 AG/AB 4G CDD (N) NEGATIVE 07/25/21 (14 weeks) NEGATIVE AFP Tetra Test Results: LC (N) See interpretation. 07/25/21 (14 weeks) Comments LC (N) Comment 07/25/21 (14 weeks) AFP Tetra Weight (N) 163 lb 07/25/21 (14 weeks) AFP Tetra Gestat. Age Based On LC (N) TOMA 07/25/21 (14 weeks) AFP Tetra T18 Risk LC (N) See interpretation. 07/25/21 (14 weeks) AFP Tetra Insulin Dep Diabetes LC (N) No 07/25/21 (14 weeks) AFP Tetra BANDAR Value LC (N) 127.57 pg/mL 07/25/21 (14 weeks) AFP Tetra uE3 MoM LC (N) See interpretation. 07/25/21 (14 weeks) AFP Tetra Maternal Age At TOMA (N) 25.1 years 07/25/21 (14 weeks) AFP Tetra T18 (By Age) LC (N) 1:3999 07/25/21 (14 weeks) AFP Tetra DSR (By Age) 1 IN (N) 1026 07/25/21 (14 weeks) AFP Tetra AFP MoM LC (N) See interpretation. 07/25/21 (14 weeks) AFP Tetra uE3 Value LC (N) 0.37 ng/mL 07/25/21 (14 weeks) AFP Tetra Interpretation LC (N) Comment 07/25/21 (14 weeks) AFP Tetra hCG MoM LC (N) See interpretation. 07/25/21 (14 weeks) AFP Tetra Race LC (N) 07/25/21 (14 weeks) AFP Tetra Multiple Gestation (N) No 07/25/21 (14 weeks) AFP Tetra OSBR Risk 1 IN (N) See interpretation. 07/25/21 (14 weeks) AFP Tetra DSR (Second Trimester) 1 IN LC (N) See interpretation. 07/25/21 (14 weeks) AFP Tetra BANDAR MoM LC (N) See interpretation. 07/25/21 (14 weeks) AFP Tetra hCG Value (N) 14434 mIU/mL 07/25/21 (14 weeks) AFP Tetra Gest. Age on Sobia Date (N) 14.7 weeks 07/25/21 (14 weeks) Donor Egg. N 07/25/21 (14 weeks) TOMA/EDC Date (). (N) 2022011807/25/21 (14 weeks) FHX NTD. N 07/25/21 (14 weeks) GA Calculation Method. ULTRASOUND 07/25/21 (14 weeks) GA Date of Calc (). (N) [id number]/25/21 (14 weeks) Insulin Dependent. N 07/25/21 (14 weeks) Nbr of Fetuses (#). (N) 1 07/25/21 (14 weeks) Other Indications. N 07/25/21 (14 weeks) Previously Elevated AFP. N 07/25/21 (14 weeks) Prior Down Syndrome/ONDT Screen. N 07/25/21 (14 weeks) Prior First Trimester Testing. N 07/25/21 (14 weeks) Prior With Down Syndrome. N 07/25/21 (14 weeks) AFP Tetra Other (N) Comment 07/25/21 (14 weeks) AFP Tetra AFP Value (N) 15.2 ng/mL 07/25/21 (14 weeks) AFP Tetra Results (N) Report 07/25/21 (14 weeks) Rubella IgG Antibody (N) Negative 07/25/21 (14 weeks) AFP Tetra AFP Value (N) 36.3 ng/mL 08/27/21 (19 weeks) AFP Tetra Other LC (N) Comment 08/27/21 (19 weeks) AFP Tetra Test Results: LC (N) *Screen Negative* 08/27/21 (19 weeks) Comments LC (N) Comment 08/27/21 (19 weeks) AFP Tetra Weight LC (N) 165 lb 08/27/21 (19 weeks) AFP Tetra Gestat. Age Based On LC (N) TOMA 08/27/21 (19 weeks) AFP Tetra T18 Risk LC (N) Not increased 08/27/21 (19 weeks) AFP Tetra Insulin Dep Diabetes LC (N) No 08/27/21 (19 weeks) AFP Tetra BANDAR Value LC (N) 73.02 pg/mL 08/27/21 (19 weeks) AFP Tetra uE3 MoM (N) 0.85 08/27/21 (19 weeks) AFP Tetra Maternal Age At TOMA LC (N) 25.1 years 08/27/21 (19 weeks) AFP Tetra T18 (By Age) LC (N) 1:3999 08/27/21 (19 weeks) AFP Tetra DSR (By Age) 1 IN LC (N) 1026 08/27/21 (19 weeks) AFP Tetra AFP MoM LC (N) 0.73 08/27/21 (19 weeks) AFP Tetra uE3 Value LC (N) 1.65 ng/mL 08/27/21 (19 weeks) AFP Tetra Interpretation LC (N) Comment 08/27/21 (19 weeks) AFP Tetra hCG MoM LC (N) 0.86 08/27/21 (19 weeks) AFP Tetra Race LC (N) 08/27/21 (19 weeks) AFP Tetra Multiple Gestation LC (N) No 08/27/21 (19 weeks) AFP Tetra OSBR Risk 1 IN LC (N) 88017 08/27/21 (19 weeks) AFP Tetra DSR (Second Trimester) 1 IN (N) 59379 08/27/21 (19 weeks) AFP Tetra BANDAR MoM LC (N) 0.45 08/27/21 (19 weeks) AFP Tetra hCG Value LC (N) 87885 mIU/mL 08/27/21 (19 weeks) AFP Tetra Gest. Age on Sobia Date LC (N) 19.4 weeks 08/27/21 (19 weeks) Donor Egg.LC N 08/27/21 (19 weeks) TOMA/EDC Date (YYYYMMDD). (N) [id number]/27/21 (19 weeks) FHX NTD. N 08/27/21 (19 weeks) GA Calculation Method. TOMA/EDC 08/27/21 (19 weeks) GA Date of Calc (YYYYMMDD). (N) [id number]/27/21 (19 weeks) Gest Age (Decimal, ##.#). (N) 19.3 08/27/21 (19 weeks) Insulin Dependent. N 08/27/21 (19 weeks) Nbr of Fetuses (#). (N) 1 08/27/21 (19 weeks) Other Indications. N 08/27/21 (19 weeks) Previously Elevated AFP. N 08/27/21 (19 weeks) Prior Down Syndrome/ONDT Screen. N 08/27/21 (19 weeks) Prior First Trimester Testing. N 08/27/21 (19 weeks) Prior With Down Syndrome. N 08/27/21 (19 weeks) AFP Tetra Results (N) Report 08/27/21 (19 weeks) Flo Sadler : 89 Actions Care Team - No Care Team Assigned. Pending Redraw QUAD. Too early <15 weeks Last Updated Date/time: 08/08/2021 09:42 (LAURA ZIMMERMAN CNM) Have pt sign blank records release to request pap results. Last Updated Date/time: 06/18/2021 15:31 (JADE MORALES) Completed No Completed Actions Flo Sadler ANN : 89 Situational Awareness Care Team - No Care Team Assigned. Comments Global Transfer of Care to [facility] [id number] Last Updated Date/time: 09/04/2021 11:54 (RIYA MAYS, RN) Rubella non-immune. Last Updated Date/time: 06/18/2021 15:32 (JADE MORALES) [place] be out of state until after 15 weeks, dating US ordered in Radiology. Last Updated Date/time: 06/18/2021 15:31 (JADE MORALES) No pap on file, pt states last was at [facility], 04/2021 WNL. Last Updated Date/time: 06/18/2021 15:30 (JADE MORALES) Flo Sadler ANN : 89 Allergies (Active and Proposed Allergies Only) No Known Allergies (Severity: Unknown severity, Onset: Unknown) Flo Sadler ANN : 89 Medications Prescriptions and Home Medications Currently Active or Taking acetaminophen 325 mg tablet SIG: See Rx Instructions, Oral, PRN, 24 EA, 0 Refill(s) Ordered: 04/12/21 Provider: MOOSE SANTANA MD Colace 100 mg oral capsule SI cap(s), Oral, BID, PRN: constipation, 180 cap(s), 3 Refill(s) Ordered: 08/12/21 Provider: LAURA ZIMMERMAN CNM docusate sodium 100 mg capsule SI mg, Oral, BID, PRN, 180 EA, 3 Refill(s) Ordered: 08/12/21 Provider: LAURA ZIMMERMAN CNM fluconazole 150 mg tablet SI mg, Oral, As Directed, 1 EA, 0 Refill(s) Ordered: 04/12/21 Provider: MOOSE SANTANA MD MiraLax oral powder for reconstitution SIG: See Instructions, Dissolve and drink 1 capful (17g) of powder in 4 to 8 ounces of liquid once daily, 510 g, 1 Refill(s) Ordered: 08/12/21 Provider: LAURA ZIMMERMAN CNM naproxen 500 mg tablet SI mg, Oral, BID, 20 EA, 0 Refill(s) Ordered: 04/12/21 Provider: MOOSE SANTANA MD polyethylene glycol 3350 Susp [510g] SIG: See Rx Instructions, 510 g, 0 Refill(s) Ordered: 08/12/21 Provider: LAURA ZIMMERMAN CNM multivitamins w/Folic Acid 0.8 mg tablet SI tab(s), Oral, Daily, 100 EA, 3 Refill(s) Ordered: 07/26/21 Provider: LAURA ZIMMERMAN CNM Multivitamins with FA 0.8 mg oral tablet SI tab(s), Oral, Daily, 100 tab(s), 3 Refill(s) Ordered: 07/25/21 Provider: LAURA ZIMMERMAN CNM Inactive or Suspended (Prescriptions and documented medications since 01/01/21) acetaminophen 325 mg oral tablet SI-2 tab(s), Oral, every 6 hr, for 7 days, PRN: pain or fever, 24 tab(s), 0 Refill(s) Status: Completed Ordered: 04/11/21 Provider: MOOSE SANTANA MD Diflucan 150 mg oral tablet SI tab(s), Oral, As Directed, for 1 days, 1 tab(s), 0 Refill(s) Status: Completed Ordered: 04/11/21 Provider: MOOSE SANTANA MD Junel (norethindrone/EE) 07/18 tablet (21) SI tab(s), Oral, Daily, 84 EA, 3 Refill(s) Status: Discontinued Ordered: 01/10/21 Provider: DICK LAUGHLIN NP Loestrin 21 07/18 oral tablet SI tab(s), Oral, Daily, 84 tab(s), 3 Refill(s) Status: Discontinued Ordered: 01/10/21 Provider: DICK LAUGHLIN NP naproxen 500 mg oral tablet SI tab(s), Oral, BID, with food, 20 tab(s), 0 Refill(s) Status: Completed Ordered: 04/11/21 Provider: MOOSE SANTANA MD multivitamins w/Folic Acid 0.8 mg tablet SI tab(s), Oral, Daily, 100 EA, 3 Refill(s) Status: Discontinued Ordered: 05/22/21 Provider: CESAR FLEMING NP Multivitamins with Vitamin B Complex, Vitamin C, Minerals and L-Methylfolate oral capsule SI cap(s), Oral, Daily, 100 cap(s), 3 Refill(s) Status: Completed Ordered: 05/22/21 Provider: CESAR FLEMING NP pseudoephedrine ER 120 mg tablet SI mg, Oral, every 12 hr, PRN, 20 EA, 1 Refill(s) Status: Discontinued Ordered: 01/10/21 Provider: DICK LAUGHLIN NP Sudafed 12-Hour 120 mg oral tablet, extended release SI tab(s), Oral, every 12 hr, PRN: congestion, 20 tab(s), 1 Refill(s) Status: Discontinued Ordered: 01/10/21 Provider: DICK LAUGHLIN NP SUMAtriptan 25 mg oral tablet SIG: See Instructions, Take 1 tablet by mouth at onset of migraine headache. May repeat dose after 2 hours if needed. Max of 100mg within 24 hours, 18 tab(s), 1 Refill(s) Status: Discontinued Ordered: 05/14/21 Provider: CESAR FLEMING NP SUMAtriptan 25 mg tablet SIG: See Rx Instructions, 18 EA, 1 Refill(s) Status: Discontinued Ordered: 05/15/21 Provider: CESAR FLEMING NP verapamil 120 mg/12 hours oral tablet, extended release SI tab(s), Oral, Daily, 90 tab(s), 0 Refill(s) Status: Discontinued Ordered: 05/14/21 Provider: CESAR FLEMING NP verapamil SR 120 mg tablet SI mg, Oral, Daily, 90 EA, 0 Refill(s) Status: Discontinued Ordered: 05/15/21 Provider: CESAR FLEMING NP Medication Administrations In-Office/Hospital (All in-office/hospital administrated medications ordered since 01/01/21) acetaminophen N/A, Once Status: Completed Ordered: 04/11/21 Provider: CONTRIBUTOR_SYSTEM, [facility] acetaminophen (acetaminophen 325 mg Tab) 975 mg, Oral, Once Status: Completed Ordered: 04/11/21 Provider: MOOSE SANTANA MD acetaminophen N/A, Once Status: Completed Ordered: 04/11/21 Provider: CONTRIBUTOR_SYSTEM, [facility] fluconazole N/A, Once Status: Completed Ordered: 04/11/21 Provider: CONTRIBUTOR_SYSTEM, [facility] ketorolac N/A, Once Status: Completed Ordered: 04/11/21 Provider: CONTRIBUTOR_SYSTEM, [facility] ketorolac (ketorolac 30 mg/mL 1 mL injection) 15 mg, IV Push (Intravenous), Once Status: Completed Ordered: 04/11/21 Provider: MOOSE SANTANA MD naproxen N/A, Once Status: Completed Ordered: 04/11/21 Provider: Azul [facility] Flo Sadler : 89 Immunizations No immunizations have been administered or recorded as given Flo Sadler : 89 Menstrual History Last Recorded Menstrual Period: -- Last Menstrual Period Description: -- Menarche Onset: -- Menarche Frequency: -- Menarche Length: -- Date of Menses Prior to LMP: -- On Hormonal Contracept within 2 months of LMP: -- Date of Home Test: -- Comments: -- Flo Sadler : 89 History (1,0,0,1) # 1 Baby 1 Outcome Date: 09/02/2019 Outcome or Result: Vaginal Gest Age: 38 weeks Outcome: Live Sex: Female Wt: 3005 g Anesthesia Type: None Hospital: [facility] Flo Sadler : 89 Medical History Past Medical History Contraception (SNOMED CT: ) Onset Age: -- Resolved: -- Family History Paternal Grandmother - FH (Name not documented, Alive) Hypertension Maternal Grandmother - FH (Name not documented, Alive) Cancer Procedure or Surgical History Appendectomy Age: 22 Years Date: 2017 Debridement Age: 7 Years Date: 2002 Comment: Staph infection of left leg. (JADE MORALES on 06/18/21) Initial care visit (report at first encounter with health career development facilitator providing obstetrical care. Report also date of visit and, in a separate field, the date of the last menstrual period [LMP]) () Age: -- Date: -- Office or other outpatient visit for the evaluation and management of an established patient that may not require the presence of a physician or other qualified health career development facilitator Age: -- Date: -- Office or other outpatient visit for the evaluation and management of an established patient, that may not require the presence of a physician or other qualified health career development facilitator. Usually, the presenting problem(s) are minimal. Age: -- Date: -- Office or other outpatient visit for the evaluation and management of an established patient, which requires a medically appropriate history and/or examination and low level of medical decision making. When using time for code selection, 20-29 minutes of Age: -- Date: -- Ultrasound, uterus, real time with image documentation, limited (eg, heart beat, placental location, position and/or qualitative amniotic fluid volume), 1 or more fetuses Age: -- Date: -- [employer] NOS Age: -- Date: -- Flo Sadler : 89 Social and Psychosocial History Social History Alcohol Current (Last 12 months) Use:. Comment: None since positive test. (06/18/2021 15:24 - JADE MORALES) Employment/School Unemployed Status:. [facility] Work/School description:. Highest education level: High school. Comment: Pt's best contact number is [phone], her ethnicity is White, and she will accept blood products. Spouse is Eddie Doroteo [employer]Kidd[employer], age 29, . Emergency contact is Jade Garcia, . (06/18/2021 15:25 - JADE MORALES) Substance Abuse Never Use:. Tobacco Exposure to Secondhand Smoke: No. Never-cigarette user Cigarette use:. Never-other tobacco user (not cigarettes) Other Tobacco use:. Psychosocial History Family/Social Domestic Concerns: None Domestic Violence Screen Have You Ever Been Emotionally Or Physically Abused by Your Partner: No Have You Been Physically Hurt by Someone Within the Past Year: No Within the Last Year, Has Anyone Forced You to Have Sexual Activity: No Have You Ever Been Emotionally Or Physically Abused by Your Partner: No Have You Been Physically Hurt by Someone Within the Past Year: No Within the Last Year, Has Anyone Forced You to Have Sexual Activity: No Have You Ever Been Emotionally Or Physically Abused by Your Partner: No Have You Been Physically Hurt by Someone Within the Past Year: No Within the Last Year, Has Anyone Forced You to Have Sexual Activity: No Flo Sadler: 89 Infection History Infection history negative or not recorded Flo Sadler: 89 Anesthesia and Transfusions Prior Anesthesia or Transfusion Received: Prior general anesthesia, No prior transfusion Prior Anesthesia Reaction(s): None Prior Transfusion Reaction(s): -- Blood Transfusion Acceptable to Patient: Yes Flo Sadler : 89 Plan and Patient Requests Education: -- Written Plan: -- Written Plan Location: -- Oral Intake OB: -- Labor Preferences: -- Non-Medicinal Pain Relief: -- Anesthesia/Pain Medication During Labor: -- Delivery Plan: -- Infant Feeding: -- Circumcision: -- Baby For Adoption: -- Support Person/Crop And Soil Scientist Relationship to Pt: -- Patient Requests: -- Mercury Cracking Tester Selected: -- Surrogate : -- Support Person's Name: -- Flo Sadler : 89 Education Educational Materials/Leaflets Provided Title/Topic Date Provided Vaginal Yeast Infection, Adult 04/11/21 Ovarian Cyst 04/11/21 Flo Sadler : 89 Registration and Information Race: White Ethnicity: Not or Marital Status: Language(s): Tunisian Roman Catholic Preference(s): -- Occupation/Education: See social history above if documented. Address, Phone, and Health Plans Home Address: [place], [place] [id number] (Home), , -- Health Plans: 1 - 602 [employer] and Mail Order and Retail Pharm Member/Group: [id number] Deductible: $ -- Type: DoD/[employer] Address: [address] [place] [address] Phone: [phone] 2 - [employer] Member/Group: [id number] Deductible: $ -- Type: DoD/ Address: [address] [place] [address] Phone: -- 3 - FINAL [employer] Member/Group: [id number] Deductible: $ -- Type: DoD/ Address: [address] [place] [address] Phone: [phone] 4 - [facility] Member/Group: [id number] Deductible: $ -- Type: DoD/ Address: [address] [place] [address] Phone: -- General Information OB Provider(s) Information: Not explicitly recorded. May be noted in encounter section below. See below for detailed information for all visits and information. Delivery Center/Hospital Information: -- Provider Information: -- Referring Provider Information: -- Primary Provider Information: BERNADETTE FARRELL, CESAR WINN /Partner Information: -- -- Support Person Information: -- Planned/Unplanned : -- Date Consent Signed for Tubal Ligation: -- Date Record Sent to Hospital: -- Flo Sadler : 89 Visits and Encounters (Known encounters since 04/03/2021. May include lab encounters.) Date Location Provider Type Medical Service 08/27/2021 [id number] AMADEO SHANKAR N Clinic OBGYN, Obstetrics 08/21/2021 [id number] RAMON BOSTON MD Outpatient Radiology, Diagnostic 07/25/2021 [id number] LAURA ZIMMERMAN [facility] Clinic OBGYN, Obstetrics 07/22/2021 [id number] -- Prereg -- 06/18/2021 [id number] JADE MORALES Clinic OBGYN, Obstetrics 06/12/2021 [id number] BERNADETTE FARRELL, [facility] Medicine 06/11/2021 [id number] -- Between Visit -- 05/22/2021 [id number] BERNADETTE MARKETING PROPOSAL COORDINATOR, [facility] Medicine 05/15/2021 [id number] HUSSAIN PERALTA RN [facility] Family Medicine 05/14/2021 [id number] BERNADETTE MARKETING PROPOSAL COORDINATOR, [facility] Medicine 05/01/2021 [id number] -- Preclinic -- 04/23/2021 [id number] -- Preclinic -- 04/11/2021 1 MOOSE SANTANA MD Emergency Emergency Medicine 04/11/2021 [id number] -- Between Visit -- Flo Sadler : 89 Visit / Encounter Location Information The following information represents known location and contact information for locations visited during [facility] Address: [address] [place] [address] Secondary Business Address: [address] [place] [address] Phone: No phone numbers found on file for location [facility] Address: [address] [place] [address] Phone: No phone numbers found on file for location Flo Sadler : 89 Visit Diagnosis (Note: All diagnoses documented since 04/03/2021) 08/27/21 - Migraine, unspecified, not intractable, without status migrainosus (ICD-10-CM: G43.909, Date: ) 08/27/21 - 19 weeks gestation of (ICD-10-CM: Z3A.19, Date: ) 08/27/21 - Other specified health status (ICD-10-CM: Z78.9, Date: ) 08/27/21 - state, incidental (ICD-10-CM: Z33.1, Date: ) 08/27/21 - Diseases of the nervous system complicating , second trimester (ICD-10-CM: O99.352, Date: ) 08/27/21 - affected by slow intrauterine growth, unspecified (ICD-10-CM: P05.9, Date: 08/29/21) 08/27/21 - state, incidental (ICD-10-CM: Z33.1, Date: 08/27/21) 08/27/21 - Other specified health status (ICD-10-CM: Z78.9, Date: 08/27/21) 08/27/21 - 19 weeks gestation of (ICD-10-CM: Z3A.19, Date: 08/27/21) 08/21/21 - state, incidental (ICD-10-CM: Z33.1, Date: 08/21/21) 07/25/21 - Migraine, unspecified, not intractable, without status migrainosus (ICD-10-CM: G43.909, Date: ) 07/25/21 - 16 weeks gestation of (ICD-10-CM: Z3A.16, Date: ) 07/25/21 - 14 weeks gestation of (ICD-10-CM: Z3A.14, Date: ) 07/25/21 - Other specified health status (ICD-10-CM: Z78.9, Date: ) 07/25/21 - Underimmunization status (ICD-10-CM: Z28.3, Date: ) 07/25/21 - Diseases of the nervous system complicating , second trimester (ICD-10-CM: O99.352, Date: ) 07/25/21 - Other specified health status (ICD-10-CM: Z78.9, Date: 07/24/21) 07/25/21 - 14 weeks gestation of (ICD-10-CM: Z3A.14, Date: 07/25/21) 06/18/21 - 10 weeks gestation of (ICD-10-CM: Z3A.10, Date: 06/18/21) 06/12/21 - Other specified health status (ICD-10-CM: Z78.9, Date: 06/13/21) 06/12/21 - Constipation, unspecified (ICD-10-CM: K59.00, Date: 06/12/21) 05/22/21 - state, incidental (ICD-10-CM: Z33.1, Date: 05/22/21) 05/15/21 - Amenorrhea, unspecified (ICD-10-CM: N91.2, Date: ) 05/15/21 - Amenorrhea, unspecified (ICD-10-CM: N91.2, Date: 05/16/21) 05/14/21 - Migraine, unspecified, not intractable, without status migrainosus (ICD-10-CM: G43.909, Date: ) 05/14/21 - Migraine, unspecified, not intractable, without status migrainosus (ICD-10-CM: G43.909, Date: 05/14/21) 04/11/21 - Candidiasis of vulva and vagina (ICD-10-CM: B37.3, Date: 04/11/21) 04/11/21 - Other ovarian cyst, left side (ICD-10-CM: N83.292, Date: 04/11/21) 02/18/21 - Other specified irregular menstruation (ICD-10-CM: N92.5, Date: ) Fol Sadler : [birth year] Delivery Summary No labor/delivery information has been documented Note: Items documented with '--' had no clinical data which qualified at time of report creation END OF REPORT Extracted from:Title: OB Visit Note 19w Author: RAAD FARRELL, AMADEO CABRERA Date: 08/27/21 1. G estation period, 19 weeks P t is doing well. See problem list. Anatomy scan ultrasound results reviewed with patient. Results pending, radiology called and alerted. Will message patient through portal with results. Pt is to schedule a follow up OB clinic visit f or 4 weeks. To MCU for any concerns or call clinic. Ordered: AFP Tetra [id number] 2. P regnant PROBLEM LIST 1. PROBLEM: N o ASA A SA? _ 2. PROBLEM: M igraines Awareness _ 3. PROBLEM: _ 4. PROBLEM: _ [1] 3. R ubella non-immune Extracted from:Title: OB Visit 14+5 Author: LAURA ZIMMERMAN CNM Date: 07/25/21 1. G estation period, 14 weeks P t is doing well. Pt had an early US with TOMA 18 JAN 2022. Confirmed with US today. Reviewed all OB lab results with patient if available. Any abnormals were explained. Otherwise normal. Discussed upcoming genetic screening with counseling on the risks and benefits of testing and possible need for further testing/evaluation based on test results. Her anatomy scan will be ordered at next visit and scheduled for 18-20 weeks. Discussed what to expect at upcoming appointments. SAB precautions Common Discomforts of second trimester reviewed, pain relief strategies discussed. Patient was encouraged to ask questions and all questions were answered to her apparent satisfaction. She was encouraged to seek emergency treatment for any concerns she might have in the ER b efore 20 weeks and MCU after 20 weeks. RTC in 4 weeks. 2. R ubella non-immune PROBLEM LIST 1. PROBLEM: N o ASA ASA? _ 2. PROBLEM: M igraines Awareness _ 3. PROBLEM: _ 4. PROBLEM: _ Ordered: Rubella IgG Antibody Orders: multivitamin, , 1 tab(s), Oral, Daily, # 100 tab(s), 3 total refill(s), Maintenance, 1 tab(s) Oral Daily, Pharmacy: [facility] AFP Tetra [id number] HIV-1/O/2 CDD Extracted from:Title: Telephone OB reg Author: JADE MORALES Date: 06/18/21 Gestation period, 10 weeks Extracted from:Title: Virtual Author: CESAR FLEMING NP Date: 06/12/21 1. C onstipation 2 4 year old female has been having trouble with constipation, currently . Discussed first line recommend increase water and fiber intake, if ineffective may try Metamucil OTC. Keep appointment with OB. Patient agrees with plan of care. Ordered: Waiver Services; Not Otherwise Specified (NOS) T2025 Extracted from:Title: Virtual- f/u lab Author: CESAR FLEMING NP Date: 05/22/21 1. P reglottie C ontinue vitamins. Keep appointment with OB to establish care. Ordered: Waiver Services; Not Otherwise Specified (NOS) T2025 Orders: multivitamin, , 1 cap(s), Oral, Daily, # 100 cap(s), 3 total refill(s), Maintenance, 1 cap(s) Oral Daily, Pharmacy: [facility] [Federal Rx: #100 last filled 05/22/21] Extracted from:Title: Virtual - Migraines Author: CESAR FLEMING NP Date: 05/14/21 1. M igraine 25 year old female with migraines is ready to start a daily preventative medication because migraines have been becoming more frequent. We discussed medication options, she is wanting to conceive and due to this verapamil would be an appropriate choice if she were to become so we will start with verapamil extended release 120 mg daily. Recommend headache diary. Will also refill sumatriptan as needed. If you do become avoid the sumatriptan and just use tylenol, other medications could be considered if needed at that time. Follow up in 2 months or sooner if needed. Patient agrees with plan of care. Ordered: SUMAtriptan, See Instructions, Take 1 tablet by mouth at onset of migraine headache. May repeat dose after 2 hours if needed. Max of 100mg within 24 hours, # 18 tab(s), 1 total refill(s), Maintenance, Take 1 tablet by mouth at onset of migraine headache. May repea... verapamil, 1 tab(s), Oral, Daily, # 90 tab(s), 0 total refill(s), Maintenance, 1 tab(s) Oral Daily, Pharmacy: [facility] [Not filled] Waiver Services; Not Otherwise Specified (NOS) T2025 Extracted from:Title: Office Clinic Note Author: HUSSAIN PERALTA RN Date: 02/18/21 Missed period Extracted from:Title: Office Clinic Note Author: HUSSAIN PERALTA RN Date: 02/18/21 Missed period Extracted from:Title: Office Clinic Note Author: DICK LAUGHLIN NP Date: 01/10/21 1. C ontraception L eft arm landmarks identified and Nexplanon site identified. Area cleansed with chlorhexidine x2. 4 cc of 1% lidocaine injected under the skin and along the Nexplanon site and under it. A scalpel was used to make a 2-3 mm incision in the skin along the site of the Nexplanon. The Nexplanon was visualized and grabbed with tissue forceps and removed without difficulty. E BL < 1ml. P atient tolerated the procedure well. S nahomy Strips applied. A sterile pressure dressing was applied, wound care instructions reviewed. Patient would like to start OCP, medication ordered. Ordered: Loestrin 21 07/18 oral tablet, 1 tab(s), Oral, Daily, # 84 tab(s), 3 total refill(s), Maintenance, 1 tab(s) Oral Daily, Pharmacy: [facility] [Not filled] Sudafed 12-Hour 120 mg oral tablet, extended release, 1 tab(s), Oral, every 12 hr, PRN congestion, # 20 tab(s), 1 total refill(s), Maintenance, 1 tab(s) Oral every 12 hr,PRN:as needed for congestion, Pharmacy: [facility] [Not filled] 01/28/2025 Unknown Organization Assessment and Plan Extracted from:Title : Summary Document Author: JADE MORALES Govind Date: 01/24/22 Flo Sadler : 1995 Age: 26 Years Flo Sadler : [birth year] Summary (Date of Report: 01/24/22) G 2 P 1 (1,0,0,1) Gestation: -- LMP (from pt. history): -- TOMA: 01/18/2022 TOMA/EGA Method: Reported EGA/TOMA EGA: 40 weeks 6 days Flo Sadler ANN : [birth year] Antepartum Note No antepartum notes have been documented Flo Sadler ANN : [birth year] Problems (Active Problems Only) (SNOMED CT: 491131516, Onset: 04/03/21) Rubella non-immune (SNOMED CT: 617117093, Onset: --) Gestation period, 19 weeks (SNOM[address] CT: 82593961, Onset: --) Flo Sadler : [birth year] Risk Factors and Genetic Screening All Results Documented Since 04/03/2021 Risk Factors (Current ) Unique Risk Factors: None Ethnic Screening Baby's father: Other Self: Genetic Disorders Screening No genetic disorders have been recorded. Flo Sadler : [birth year] Gestational Age (EGA) and TOMA * Note: EGA calculated as of 01/24/2022 TOMA: 01/18/2022 EGA*: 40 weeks 6 days Type: Authoritative Method Date: 07/25/2021 Method: Reported EGA/TOMA (07/25/2021) Confirmation: Confirmed Description: Due date Comments: Had US in [place]. TOMA changed to JAN 17. CWD US done 07/25/21 by tk Entered by: LAURA ZIMMERMAN CNM on 07/25/2021 Other TOMA Calculations for this : Method: Last Menstrual Period Method Date: 04/03/2021 TOMA: 01/08/2022 EGA (At Entry): 10 weeks 6 days Type: Non-Authoritative Comments: -- Entered by: JADE MORALES on 07/25/2021 Flo Sadler : [birth year] Measurements Pre- Weight: 74.84 kg 08/27/21 (19 weeks) Recent Weight Measured: 74.8 kg 08/27/21 (19 weeks) Height/Length Measured: 160 cm 08/27/21 (19 weeks) Body Mass Index Measured: 29.22 kg/m2 08/27/21 (19 weeks) Flo Sadler DOB: [birth year] Exam and Notes Date VASILIY [place]ham PTL S/S Cervix BP Weight Urine Baby cm Dil Eff(%) Sta mmHg lbs kg Gluc Prot FHR Activity Fet Pres 08/27/21 19w3d -- None -- -- -- 117/76 *164... -- -- Baby A = Present -- 07/25/21 14w5d 16 None -- -- -- 111/74 *163... -- -- Baby A = Present -- 05/15/21 4w4d -- -- -- -- -- 124/74 -- -- -- -- -- -- 04/11/21 -- -- -- -- -- -- 126/76 *165... -- -- -- -- -- * Weight 08/27/2021 164.934(lbs) 74.8(kg) 07/25/2021 163.170(lbs) 74(kg) 04/11/2021 165.375(lbs) 75(kg) Flo Sadler DOB: [birth year] Physical Exams Physical Exam Mental Status Orientation Assessment: Oriented x 4 (04/11/21) Cardiovascular Cardiovascular Symptoms: None (04/11/21) Respiratory Respiratory Symptoms: None (04/11/21) Respirations: Unlabored (04/11/21) Respiratory Pattern: Regular (04/11/21) Oxygen Therapy: Room air (04/11/21) SpO2: 97 % (05/15/21) Gastrointestinal GI Symptoms: Diarrhea, Other: low abdominal pain , normal appetite (04/11/21) Integumentary Skin Color: Normal for ethnicity (04/11/21) Skin Description: Dry (04/11/21) Skin Temperature: Warm (04/11/21) Flo Sadler : [birth year] Blood Types and Anti-D Immune Globulin Blood Type and Screen Mother ABO/Rh: -- Mother Antibody Screen: -- Father of Baby ABO/Rh: -- Father of Baby Antibody Screen: -- Anti-D Immune Globulin Rho(D) Initial Status: -- Rho(D) 28 Week Status: -- Rho(D) Dates Given: -- Flo Sadler : [birth year] Tests and Lab Results Results ending with 'TR' have been keyed in by the practice or interpreted manually. Result Date: Estimated weeks post onset will display next to actual result date. Test Result Date Ref Range Internal QC OK? Yes 04/11/21 (0 weeks) Beta hCG, Urine Qual Negative 04/11/21 (0 weeks) Negative UA Clarity Clear 04/11/21 (0 weeks) UA Micro Ind? (N) Indicated 04/11/21 (0 weeks) UA Protein (N) NEGATIVE mg/dL 04/11/21 (0 weeks) UA Leuk Esterase (A) Small 04/11/21 (0 weeks) Negative UA Ketones Negative mg/dL 04/11/21 (0 weeks) UA Spec [place] (N) 1.023 04/11/21 (0 weeks) UA Color Yellow 04/11/21 (0 weeks) Yellow UA pH 5.5 04/11/21 (0 weeks) (5.0 - 8.0) UA Blood (N) TRACE mg/dL 04/11/21 (0 weeks) UA Appear Clear 04/11/21 (0 weeks) Clear UA Nitrite Negative 04/11/21 (0 weeks) Negative UA Bili Negative mg/dL 04/11/21 (0 weeks) Negative UA Urobilinogen Normal mg/dL 04/11/21 (0 weeks) Normal UA Glucose Negative mg/dL 04/11/21 (0 weeks) UA Epi Squam (H) 10 /HPF 04/11/21 (0 weeks) (0 - 4) UA WBC (H) 9 /HPF 04/11/21 (0 weeks) (0 - 3) UA RBC 2 /HPF 04/11/21 (0 weeks) (0 - 3) UA Bacteria (N) 1+ /HPF 04/11/21 (0 weeks) UA Hyaline Cast (H) 3 /LPF 04/11/21 (0 weeks) (0 - 2) Hemoglobin 15.8 g/dL 04/11/21 (0 weeks) (12.0 - 16.0) WBC 7.45 x10^3/mcL 04/11/21 (0 weeks) (4.50 - 11.00) MCH 29.3 pg 04/11/21 (0 weeks) (26.0 - 34.0) MCV 85.2 fL 04/11/21 (0 weeks) (80.0 - 100.0) MCHC 34.4 g/dL 04/11/21 (0 weeks) (31.0 - 37.0) MPV 10.4 fL 04/11/21 (0 weeks) (7.4 - 10.4) RDW CV 12.7 % 04/11/21 (0 weeks) (11.5 - 14.5) RBC (H) 5.39 x10^6/mcL 04/11/21 (0 weeks) (4.00 - 5.20) Hematocrit 45.90 % 04/11/21 (0 weeks) (36.00 - 46.00) Platelets 192 x10^3/mcL 04/11/21 (0 weeks) (150 - 440) Neutrophil % Auto (H) 62.2 % 04/11/21 (0 weeks) (40.0 - 60.0) Neutro Absolute 4.63 x10^3/mcL 04/11/21 (0 weeks) (1.80 - 7.70) Eosinophil % Auto 0.8 % 04/11/21 (0 weeks) (0.0 - 5.0) Lymphocyte % Auto 30.2 % 04/11/21 (0 weeks) (24.0 - 44.0) [place] Absolute 0.47 x10^3/mcL 04/11/21 (0 weeks) (0.00 - 1.00) Baso Absolute 0.03 x10^3/mcL 04/11/21 (0 weeks) (0.00 - 0.70) Basophil % Auto 0.4 % 04/11/21 (0 weeks) (0.0 - 3.0) nRBC % Auto 0.0 % 04/11/21 (0 weeks) (0.0 - 5.0) Eos Absolute 0.06 x10^3/mcL 04/11/21 (0 weeks) (0.00 - 0.70) Lymph Absolute 2.25 x10^3/mcL 04/11/21 (0 weeks) (1.00 - 4.80) Monocyte % Auto 6.3 % 04/11/21 (0 weeks) (2.0 - 8.0) Imm. Granulocyte Absolute (N) 0.01 04/11/21 (0 weeks) Imm. Granulocyte % 0.10 % 04/11/21 (0 weeks) (0.00 - 0.50) nRBC Absolute (N) 0.00 04/11/21 (0 weeks) Clue Cells, Wet Prep None Seen 04/11/21 (0 weeks) None Seen Epi Cells, Wet Prep (A) Many 04/11/21 (0 weeks) Trichomonas, Wet Prep Not Reported 04/11/21 (0 weeks) WBC, Wet Prep (A) Many 04/11/21 (0 weeks) KENNETH (A) Fungal Present 04/11/21 (0 weeks) Fungal Not Pres Osmo Calc 274 mOsm/kg 04/11/21 (0 weeks) (261 - 284) Chloride 103 mmol/L 04/11/21 (0 weeks) (98 - 107) Sodium 137 mmol/L 04/11/21 (0 weeks) (136 - 145) BUN/Creat Ratio (N) 19.7 04/11/21 (0 weeks) CO2 25 mmol/L 04/11/21 (0 weeks) (22 - 29) AGAP 13 04/11/21 (0 weeks) (10 - 20) Glucose Lvl 93 mg/dL 04/11/21 (0 weeks) (74 - 100) BUN 14.0 mg/dL 04/11/21 (0 weeks) (6.0 - 20.0) Calcium 9.60 mg/dL 04/11/21 (0 weeks) (8.60 - 10.00) Creatinine Level 0.71 mg/dL 04/11/21 (0 weeks) (0.52 - 1.04) Potassium Lvl 3.86 mmol/L 04/11/21 (0 weeks) (3.50 - 5.10) eGFR Non-AA 119.2 mL/min 04/11/21 (0 weeks) >=60.0 eGFR AA 138.2 mL/min 04/11/21 (0 weeks) >=60.0 Neisseria gonorrhoeae RAJ LC (N) Negative 04/11/21 (0 weeks) Negative Chlamydia trach RAJ (N) Negative 04/11/21 (0 weeks) Negative Beta hCG Qnt (N) 19.64 mIU/mL 05/15/21 (4 weeks) Beta hCG Qnt (N) 84.44 mIU/mL 05/17/21 (4 weeks) Test Result Date Ref Range Source of Test.LC OB Clinic 06/11/21 (8 weeks) HIV-1/2 AG/AB 4G CDD LC (N) NEGATIVE 06/11/21 (8 weeks) NEGATIVE Cystic Fibrosis Scrn.KS (N) See comment 06/11/21 (8 weeks) CFPS Testing Consent.KS Yes 06/11/21 (8 weeks) CFPS Pt. Symptoms.KS (U) none 06/11/21 (8 weeks) CFPS Pt. Race-Mother White/ 06/11/21 (8 weeks) CFPS Pt. Race-Father.KS White/ 06/11/21 (8 weeks) CFPS Provider Contact.KS (U) [phone] 06/11/21 (8 weeks) CFPS Ind. for Test.KS Scrn 06/11/21 (8 weeks) CFPS Family Hx?.KS No 06/11/21 (8 weeks) RBC (H) 5.29 x10^6/mcL 06/11/21 (8 weeks) (4.00 - 5.20) MPV 9.8 fL 06/11/21 (8 weeks) (7.4 - 10.4) RDW CV 13.0 % 06/11/21 (8 weeks) (11.5 - 14.5) Hematocrit 44.40 % 06/11/21 (8 weeks) (36.00 - 46.00) Platelets 209 x10^3/mcL 06/11/21 (8 weeks) (150 - 440) Hemoglobin 15.8 g/dL 06/11/21 (8 weeks) (12.0 - 16.0) WBC 8.24 x10^3/mcL 06/11/21 (8 weeks) (4.50 - 11.00) MCH 29.9 pg 06/11/21 (8 weeks) (26.0 - 34.0) MCV 83.9 fL 06/11/21 (8 weeks) (80.0 - 100.0) MCHC 35.6 g/dL 06/11/21 (8 weeks) (31.0 - 37.0) Lymph Absolute 1.88 x10^3/mcL 06/11/21 (8 weeks) (1.00 - 4.80) Eos Absolute 0.05 x10^3/mcL 06/11/21 (8 weeks) (0.00 - 0.70) nRBC % Auto 0.0 % 06/11/21 (8 weeks) (0.0 - 5.0) Basophil % Auto 0.4 % 06/11/21 (8 weeks) (0.0 - 3.0) Baso Absolute 0.03 x10^3/mcL 06/11/21 (8 weeks) (0.00 - 0.70) [place] Absolute 0.57 x10^3/mcL 06/11/21 (8 weeks) (0.00 - 1.00) Lymphocyte % Auto (L) 22.8 % 06/11/21 (8 weeks) (24.0 - 44.0) Eosinophil % Auto 0.6 % 06/11/21 (8 weeks) (0.0 - 5.0) Neutro Absolute 5.69 x10^3/mcL 06/11/21 (8 weeks) (1.80 - 7.70) Monocyte % Auto 6.9 % 06/11/21 (8 weeks) (2.0 - 8.0) Neutrophil % Auto (H) 69.1 % 06/11/21 (8 weeks) (40.0 - 60.0) nRBC Absolute (N) 0.00 06/11/21 (8 weeks) Imm. Granulocyte % 0.20 % 06/11/21 (8 weeks) (0.00 - 0.50) Imm. Granulocyte Absolute (N) 0.02 06/11/21 (8 weeks) Iron 90.0 ug/dL 06/11/21 (8 weeks) (37.0 - 170.0) Ferritin Lvl 116.70 ng/mL 06/11/21 (8 weeks) (13.00 - 150.00) UIBC, (H) 195.0 ug/dL 06/11/21 (8 weeks) (34.0 - 105.0) TIBC 285 06/11/21 (8 weeks) (265 - 497) Iron % Sat 32 06/11/21 (8 weeks) (13 - 59) Beta hCG Qnt (N) 28195.00 mIU/mL 06/11/21 (8 weeks) ABSC Negative ABSC 06/11/21 (8 weeks) ABO/Rh Type (U) O POS 06/11/21 (8 weeks) ABORh Retype (U) O POS 06/11/21 (8 weeks) VZV IgG Scrn (A) Positive 06/11/21 (8 weeks) Negative Rubella IgG Antibody (N) Negative 06/11/21 (8 weeks) Hep B Surface Ag (N) nr 06/11/21 (8 weeks) RPR Non-Reactive 06/11/21 (8 weeks) Non-Reactive Hemoglobin A.[facility] (N) 97.3 % 06/11/21 (8 weeks) 94.5-98.2 Path Review Electrophoresis.[facility] (N) SEE 06/11/21 (8 weeks) Hemoglobin F.[facility] (N) <0.5 % 06/11/21 (8 weeks) 0.0-2.0 Hemoglobin A2.[facility] (N) 2.7 % 06/11/21 (8 weeks) 1.8-3.5 Source of Test. OB Clinic 07/25/21 (14 weeks) HIV-1/2 AG/AB 4G CDD (N) NEGATIVE 07/25/21 (14 weeks) NEGATIVE AFP Tetra Test Results: LC (N) See interpretation. 07/25/21 (14 weeks) Comments LC (N) Comment 07/25/21 (14 weeks) AFP Tetra Weight (N) 163 lb 07/25/21 (14 weeks) AFP Tetra Gestat. Age Based On LC (N) TOMA 07/25/21 (14 weeks) AFP Tetra T18 Risk LC (N) See interpretation. 07/25/21 (14 weeks) AFP Tetra Insulin Dep Diabetes LC (N) No 07/25/21 (14 weeks) AFP Tetra BANDAR Value LC (N) 127.57 pg/mL 07/25/21 (14 weeks) AFP Tetra uE3 MoM LC (N) See interpretation. 07/25/21 (14 weeks) AFP Tetra Maternal Age At TOMA LC (N) 25.1 years 07/25/21 (14 weeks) AFP Tetra T18 (By Age) LC (N) 1:3999 07/25/21 (14 weeks) AFP Tetra DSR (By Age) 1 IN (N) 1026 07/25/21 (14 weeks) AFP Tetra AFP MoM LC (N) See interpretation. 07/25/21 (14 weeks) AFP Tetra uE3 Value LC (N) 0.37 ng/mL 07/25/21 (14 weeks) AFP Tetra Interpretation LC (N) Comment 07/25/21 (14 weeks) AFP Tetra hCG MoM LC (N) See interpretation. 07/25/21 (14 weeks) AFP Tetra Race LC (N) 07/25/21 (14 weeks) AFP Tetra Multiple Gestation (N) No 07/25/21 (14 weeks) AFP Tetra OSBR Risk 1 IN LC (N) See interpretation. 07/25/21 (14 weeks) AFP Tetra DSR (Second Trimester) 1 IN LC (N) See interpretation. 07/25/21 (14 weeks) AFP Tetra BANDAR MoM LC (N) See interpretation. 07/25/21 (14 weeks) AFP Tetra hCG Value (N) 56955 mIU/mL 07/25/21 (14 weeks) AFP Tetra Gest. Age on Sobia Date (N) 14.7 weeks 07/25/21 (14 weeks) Donor Egg. N 07/25/21 (14 weeks) TOMA/EDC Date (). (N) 2022011807/25/21 (14 weeks) FHX NTD. N 07/25/21 (14 weeks) GA Calculation Method. ULTRASOUND 07/25/21 (14 weeks) GA Date of Calc (). (N) 2021072507/25/21 (14 weeks) Insulin Dependent. N 07/25/21 (14 weeks) Nbr of Fetuses (#). (N) 1 07/25/21 (14 weeks) Other Indications. N 07/25/21 (14 weeks) Previously Elevated AFP. N 07/25/21 (14 weeks) Prior Down Syndrome/ONDT Screen. N 07/25/21 (14 weeks) Prior First Trimester Testing. N 07/25/21 (14 weeks) Prior With Down Syndrome. N 07/25/21 (14 weeks) AFP Tetra Other (N) Comment 07/25/21 (14 weeks) AFP Tetra AFP Value (N) 15.2 ng/mL 07/25/21 (14 weeks) [facility]ra Results (N) Report 07/25/21 (14 weeks) Rubella IgG Antibody (N) Negative 07/25/21 (14 weeks) AFP Tetra AFP Value (N) 36.3 ng/mL 08/27/21 (19 weeks) AFP Tetra Other LC (N) Comment 08/27/21 (19 weeks) AFP Tetra Test Results: LC (N) *Screen Negative* 08/27/21 (19 weeks) Comments LC (N) Comment 08/27/21 (19 weeks) AFP Tetra Weight LC (N) 165 lb 08/27/21 (19 weeks) AFP Tetra Gestat. Age Based On LC (N) TOMA 08/27/21 (19 weeks) AFP Tetra T18 Risk LC (N) Not increased 08/27/21 (19 weeks) AFP Tetra Insulin Dep Diabetes LC (N) No 08/27/21 (19 weeks) AFP Tetra BANDAR Value LC (N) 73.02 pg/mL 08/27/21 (19 weeks) AFP Tetra uE3 MoM LC (N) 0.85 08/27/21 (19 weeks) AFP Tetra Maternal Age At TOMA LC (N) 25.1 years 08/27/21 (19 weeks) AFP Tetra T18 (By Age) LC (N) 1:3999 08/27/21 (19 weeks) AFP Tetra DSR (By Age) 1 IN LC (N) 1026 08/27/21 (19 weeks) AFP Tetra AFP MoM LC (N) 0.73 08/27/21 (19 weeks) AFP Tetra uE3 Value LC (N) 1.65 ng/mL 08/27/21 (19 weeks) AFP Tetra Interpretation LC (N) Comment 08/27/21 (19 weeks) [facility]ra hCG MoM LC (N) 0.86 08/27/21 (19 weeks) AFP [facility]ra Race LC (N) 08/27/21 (19 weeks) AFP Tetra Multiple Gestation LC (N) No 08/27/21 (19 weeks) AFP Tetra OSBR Risk 1 IN LC (N) 06281 08/27/21 (19 weeks) AFP Tetra DSR (Second Trimester) 1 IN (N) 27440 08/27/21 (19 weeks) [facility]ra BANDAR MoM LC (N) 0.45 08/27/21 (19 weeks) AFP Tetra hCG Value LC (N) 91670 mIU/mL 08/27/21 (19 weeks) AFP Tetra Gest. Age on [place] Date LC (N) 19.4 weeks 08/27/21 (19 weeks) Donor Egg.LC N 08/27/21 (19 weeks) TOMA/EDC Date (YYYYMMDD). (N) 2022011808/27/21 (19 weeks) FHX NTD. N 08/27/21 (19 weeks) GA Calculation Method. TOMA/EDC 08/27/21 (19 weeks) GA Date of Calc (YYYYMMDD). (N) 2021082708/27/21 (19 weeks) Gest Age (Decimal, ##.#). (N) 19.3 08/27/21 (19 weeks) Insulin Dependent. N 08/27/21 (19 weeks) Nbr of Fetuses (#). (N) 1 08/27/21 (19 weeks) Other Indications. N 08/27/21 (19 weeks) Previously Elevated AFP. N 08/27/21 (19 weeks) Prior Down Syndrome/ONDT Screen. N 08/27/21 (19 weeks) Prior First Trimester Testing. N 08/27/21 (19 weeks) Prior With Down Syndrome. N 08/27/21 (19 weeks) [facility] Tetra Results (N) Report 08/27/21 (19 weeks) Flo Sadler : [birth year] Actions Care Team - No Care Team Assigned. Pending Redraw QUAD. Too early <15 weeks Last Updated Date/time: 08/08/2021 09:42 (LAURA ZIMMERMAN, CHANI) Have pt sign blank records release to request pap results. Last Updated Date/time: 06/18/2021 15:31 (JADE MORALES) Completed No Completed Actions Flo Sadler ANN : 89 Situational Awareness Care Team - No Care Team Assigned. Comments Global Transfer of Care to [facility] [id number] Last Updated Date/time: 09/04/2021 11:54 (RIYA MAYS, RN) Rubella non-immune. Last Updated Date/time: 06/18/2021 15:32 (JADE MORALES) Pt [place] be out of state until after 15 weeks, dating US ordered in Radiology. Last Updated Date/time: 06/18/2021 15:31 (JADE MORALES) No pap on file, pt states last was at [facility], 04/2021 WNL. Last Updated Date/time: 06/18/2021 15:30 (JADE MORALES) Flo Sadler ANN : [birth year] Allergies (Active and Proposed Allergies Only) No Known Allergies (Severity: Unknown severity, Onset: Unknown) Doroteo Flo ADAMS ANN : [birth year] Medications Prescriptions and Home Medications Currently Active or Taking acetaminophen 325 mg tablet SIG: See Rx Instructions, Oral, PRN, 24 EA, 0 Refill(s) Ordered: 04/12/21 Provider: MOOSE SANTANA MD Colace 100 mg oral capsule SI cap(s), Oral, BID, PRN: constipation, 180 cap(s), 3 Refill(s) Ordered: 08/12/21 Provider: LAURA ZIMMERMAN CNM docusate sodium 100 mg capsule SI mg, Oral, BID, PRN, 180 EA, 3 Refill(s) Ordered: 08/12/21 Provider: LAURA ZIMMERMAN CNM fluconazole 150 mg tablet SI mg, Oral, As Directed, 1 EA, 0 Refill(s) Ordered: 04/12/21 Provider: MOOSE SANTANA MD MiraLax oral powder for reconstitution SIG: See Instructions, Dissolve and drink 1 capful (17g) of powder in 4 to 8 ounces of liquid once daily, 510 g, 1 Refill(s) Ordered: 08/12/21 Provider: LAURA ZIMMERMAN CNM naproxen 500 mg tablet SI mg, Oral, BID, 20 EA, 0 Refill(s) Ordered: 04/12/21 Provider: MOOSE SANTANA MD polyethylene glycol 3350 Susp [510g] SIG: See Rx Instructions, 510 g, 0 Refill(s) Ordered: 08/12/21 Provider: LAURA ZIMMERMAN CNM multivitamins w/Folic Acid 0.8 mg tablet SI tab(s), Oral, Daily, 100 EA, 3 Refill(s) Ordered: 07/26/21 Provider: LAURA ZIMMERMAN CNM Multivitamins with FA 0.8 mg oral tablet SI tab(s), Oral, Daily, 100 tab(s), 3 Refill(s) Ordered: 07/25/21 Provider: LAURA ZIMMERMAN CNM Inactive or Suspended (Prescriptions and documented medications since 01/01/21) acetaminophen 325 mg oral tablet SI-2 tab(s), Oral, every 6 hr, for 7 days, PRN: pain or fever, 24 tab(s), 0 Refill(s) Status: Completed Ordered: 04/11/21 Provider: MOOSE SANTANA MD Diflucan 150 mg oral tablet SI tab(s), Oral, As Directed, for 1 days, 1 tab(s), 0 Refill(s) Status: Completed Ordered: 04/11/21 Provider: MOOSE SANTANA MD Junel (norethindrone/EE) 07/18 tablet (21) SI tab(s), Oral, Daily, 84 EA, 3 Refill(s) Status: Discontinued Ordered: 01/10/21 Provider: DICK LAUGHLIN NP Loestrin 21 07/18 oral tablet SI tab(s), Oral, Daily, 84 tab(s), 3 Refill(s) Status: Discontinued Ordered: 01/10/21 Provider: DICK LAUGHLIN NP naproxen 500 mg oral tablet SI tab(s), Oral, BID, with food, 20 tab(s), 0 Refill(s) Status: Completed Ordered: 04/11/21 Provider: MOOSE SANTANA MD multivitamins w/Folic Acid 0.8 mg tablet SI tab(s), Oral, Daily, 100 EA, 3 Refill(s) Status: Discontinued Ordered: 05/22/21 Provider: CESAR FLEMING NP Multivitamins with Vitamin B Complex, Vitamin C, Minerals and L-Methylfolate oral capsule SI cap(s), Oral, Daily, 100 cap(s), 3 Refill(s) Status: Completed Ordered: 05/22/21 Provider: CESAR FLEMING NP pseudoephedrine ER 120 mg tablet SI mg, Oral, every 12 hr, PRN, 20 EA, 1 Refill(s) Status: Discontinued Ordered: 01/10/21 Provider: DICK LAUGHLIN NP Sudafeerlinda 12-Hour 120 mg oral tablet, extended release SI tab(s), Oral, every 12 hr, PRN: congestion, 20 tab(s), 1 Refill(s) Status: Discontinued Ordered: 01/10/21 Provider: DICK LAUGHLIN NP SUMAtriptan 25 mg oral tablet SIG: See Instructions, Take 1 tablet by mouth at onset of migraine headache. May repeat dose after 2 hours if needed. Max of 100mg within 24 hours, 18 tab(s), 1 Refill(s) Status: Discontinued Ordered: 05/14/21 Provider: CESAR FLEMING NP SUMAtriptan 25 mg tablet SIG: See Rx Instructions, 18 EA, 1 Refill(s) Status: Discontinued Ordered: 05/15/21 Provider: CESAR FLEMING NP verapamil 120 mg/12 hours oral tablet, extended release SI tab(s), Oral, Daily, 90 tab(s), 0 Refill(s) Status: Discontinued Ordered: 05/14/21 Provider: CESAR FLEMING NP verapamil SR 120 mg tablet SI mg, Oral, Daily, 90 EA, 0 Refill(s) Status: Discontinued Ordered: 05/15/21 Provider: CESAR FLEMING NP Medication Administrations In-Office/Hospital (All in-office/hospital administrated medications ordered since 01/01/21) acetaminophen N/A, Once Status: Completed Ordered: 04/11/21 Provider: CONTRIBUTOR_SYSTEM, [facility] acetaminophen (acetaminophen 325 mg Tab) 975 mg, Oral, Once Status: Completed Ordered: 04/11/21 Provider: MOOSE SANTANA MD acetaminophen N/A, Once Status: Completed Ordered: 04/11/21 Provider: CONTRIBUTOR_SYSTEM, [facility] fluconazole N/A, Once Status: Completed Ordered: 04/11/21 Provider: CONTRIBUTOR_SYSTEM, [facility] ketorolac N/A, Once Status: Completed Ordered: 04/11/21 Provider: CONTRIBUTOR_SYSTEM, [facility] ketorolac (ketorolac 30 mg/mL 1 mL injection) 15 mg, IV Push (Intravenous), Once Status: Completed Ordered: 04/11/21 Provider: MOOSE SANTANA MD naproxkm N/A, Once Status: Completed Ordered: 04/11/21 Provider: Azul [facility] Flo Sadler : [birth year] Immunizations No immunizations have been administered or recorded as given Flo Sadler ANN : [birth year] Menstrual History Last Recorded Menstrual Period: -- Last Menstrual Period Description: -- Menarche Onset: -- Menarche Frequency: -- Menarche Length: -- Date of Menses Prior to LMP: -- On Hormonal Contracept within 2 months of LMP: -- Date of Home Test: -- Comments: -- Flo Sadler : [birth year] History (1,0,0,1) # 1 Baby 1 Outcome Date: 09/02/2019 Outcome or Result: Vaginal Gest Age: 38 weeks Outcome: Live Sex: Female Wt: 3005 g Anesthesia Type: None Hospital: [facility] Flo Sadler : [birth year] Medical History Past Medical History Contraception (SNOMED CT: ) Onset Age: -- Resolved: -- Family History Paternal Grandmother - FH (Name not documented, Alive) Hypertension Maternal Grandmother - FH (Name not documented, Alive) Cancer Procedure or Surgical History Appendectomy Age: 22 Years Date: 2017 Debridement Age: 7 Years Date: 2002 Comment: Staph infection of left leg. (JADE MORALES on 06/18/21) Initial care visit (report at first encounter with health career development facilitator providing obstetrical care. Report also date of visit and, in a separate field, the date of the last menstrual period [LMP]) () Age: -- Date: -- Office or other outpatient visit for the evaluation and management of an established patient that may not require the presence of a physician or other qualified health career development facilitator Age: -- Date: -- Office or other outpatient visit for the evaluation and management of an established patient, that may not require the presence of a physician or other qualified health career development facilitator. Usually, the presenting problem(s) are minimal. Age: -- Date: -- Office or other outpatient visit for the evaluation and management of an established patient, which requires a medically appropriate history and/or examination and low level of medical decision making. When using time for code selection, 20-29 minutes of Age: -- Date: -- Ultrasound, uterus, real time with image documentation, limited (eg, heart beat, placental location, position and/or qualitative amniotic fluid volume), 1 or more fetuses Age: -- Date: -- Waivr servvices NOS Age: -- Date: -- Flo Sadler : 89 Social and Psychosocial History Social History Alcohol Current (Last 12 months) Use:. Comment: None since positive test. (06/18/2021 15:24 - JADE MORALES) Employment/School Unemployed Status:. [facility] Work/School description:. Highest education level: High school. Comment: Pt's best contact number is [phone], her ethnicity is White, and she will accept blood products. Spouse is Eddie Sadler, [employer], age 29, . Emergency contact is Jade Garcia, . (06/18/2021 15:25 - JADE MORALES) Substance Abuse Never Use:. Tobacco Exposure to Secondhand Smoke: No. Never-cigarette user Cigarette use:. Never-other tobacco user (not cigarettes) Other Tobacco use:. Psychosocial History Family/Social Domestic Concerns: None Domestic Violence Screen Have You Ever Been Emotionally Or Physically Abused by Your Partner: No Have You Been Physically Hurt by Someone Within the Past Year: No Within the Last Year, Has Anyone Forced You to Have Sexual Activity: No Have You Ever Been Emotionally Or Physically Abused by Your Partner: No Have You Been Physically Hurt by Someone Within the Past Year: No Within the Last Year, Has Anyone Forced You to Have Sexual Activity: No Have You Ever Been Emotionally Or Physically Abused by Your Partner: No Have You Been Physically Hurt by Someone Within the Past Year: No Within the Last Year, Has Anyone Forced You to Have Sexual Activity: No Flo Sadler: [birth year] Infection History Infection history negative or not recorded Flo Sadler DOB: [birth year] Anesthesia and Transfusions Prior Anesthesia or Transfusion Received: Prior general anesthesia, No prior transfusion Prior Anesthesia Reaction(s): None Prior Transfusion Reaction(s): -- Blood Transfusion Acceptable to Patient: Yes Flo Sadler : [birth year] Plan and Patient Requests Education: -- Written Plan: -- Written Plan Location: -- Oral Intake OB: -- Labor Preferences: -- Non-Medicinal Pain Relief: -- Anesthesia/Pain Medication During Labor: -- Delivery Plan: -- Infant Feeding: -- Circumcision: -- Baby For Adoption: -- Support Person/Crop And Soil Scientist Relationship to Pt: -- Patient Requests: -- Mercury Cracking Tester Selected: -- Surrogate : -- Support Person's Name: -- Flo Sadler : [birth year] Education Educational Materials/Leaflets Provided Title/Topic Date Provided Vaginal Yeast Infection, Adult 04/11/21 Ovarian Cyst 04/11/21 Flo Sadler : [birth year] Registration and Information Race: White Ethnicity: Not or Marital Status: Language(s): Tunisian Roman Catholic Preference(s): -- Occupation/Education: See social history above if documented. Address, Phone, and Health Plans Home Address: [place], [place] [id number] (Home), , -- Health Plans: 1 - 602 [employer] and Mail Order and Retail Pharm Member/Group: [id number] Deductible: $ -- Type: DoD/Park[employer] Address: [address] [place] [address] Phone: [phone] 2 - [employer] Member/Group: [id number] Deductible: $ -- Type: DoD/ Address: [address] [place] [address] Phone: -- 3 - FINAL [employer] Member/Group: [id number] Deductible: $ -- Type: DoD/ Address: [address] [place] [address] Phone: [phone] 4 - [facility] Member/Group: [id number] Deductible: $ -- Type: DoD/ Address: [address] [place] [address] Phone: -- General Information OB Provider(s) Information: Not explicitly recorded. May be noted in encounter section below. See below for detailed information for all visits and information. Delivery Center/Hospital Information: -- Provider Information: -- Referring Provider Information: -- Primary Provider Information: CESAR FLEMING NP /Partner Information: -- -- Support Person Information: -- Planned/Unplanned : -- Date Consent Signed for Tubal Ligation: -- Date Record Sent to Hospital: -- Flo Sadler : [birth year] Visits and Encounters (Known encounters since 04/03/2021. May include lab encounters.) Date Location Provider Type Medical Service 08/27/2021 [id number] AMADEO SHANKAR N Clinic OBGYN, Obstetrics 08/21/2021 [id number] RAMON BOSTON MD Outpatient Radiology, Diagnostic 07/25/2021 [id number] LAURA ZIMMERMAN CN Clinic OBGYN, Obstetrics 07/22/2021 [id number] -- Prereg -- 06/18/2021 [id number] JADE MORALES [facility] OBGY, Obstetrics 06/12/2021 [id number] BERNADETTE FARRELL, [facility] Medicine 06/11/2021 [id number] -- Between Visit -- 05/22/2021 [id number] BERNADETTE MARKETING PROPOSAL COORDINATOR, [facility] Medicine 05/15/2021 [id number] HUSSAIN PERALTA, JAIME [facility] Family Medicine 05/14/2021 [id number] BERNADETTE MARKETING PROPOSAL COORDINATOR, [facility] Medicine 05/01/2021 [id number] -- Preclinic -- 04/23/2021 [id number] -- Preclinic -- 04/11/2021 1 MOOSE SANTANA MD Emergency Emergency Medicine 04/11/2021 [id number] -- Between Visit -- Flo Sadler : [birth year] Visit / Encounter Location Information The following information represents known location and contact information for locations visited during [facility] Address: [address] [place] [address] Secondary Business Address: [address] [place] [address] Phone: No phone numbers found on file for location [facility] Address: [address] [place] [address] Phone: No phone numbers found on file for location Flo Sadler DOB: [birth year] Visit Diagnosis (Note: All diagnoses documented since 04/03/2021) 08/27/21 - Migraine, unspecified, not intractable, without status migrainosus (ICD-10-CM: G43.909, Date: ) 08/27/21 - 19 weeks gestation of (ICD-10-CM: Z3A.19, Date: ) 08/27/21 - Other specified health status (ICD-10-CM: Z78.9, Date: ) 08/27/21 - state, incidental (ICD-10-CM: Z33.1, Date: ) 08/27/21 - Diseases of the nervous system complicating , second trimester (ICD-10-CM: O99.352, Date: ) 08/27/21 - [place] affected by slow intrauterine growth, unspecified (ICD-10-CM: P05.9, Date: 08/29/21) 08/27/21 - state, incidental (ICD-10-CM: Z33.1, Date: 08/27/21) 08/27/21 - Other specified health status (ICD-10-CM: Z78.9, Date: 08/27/21) 08/27/21 - 19 weeks gestation of (ICD-10-CM: Z3A.19, Date: 08/27/21) 08/21/21 - state, incidental (ICD-10-CM: Z33.1, Date: 08/21/21) 07/25/21 - Migraine, unspecified, not intractable, without status migrainosus (ICD-10-CM: G43.909, Date: ) 07/25/21 - 16 weeks gestation of (ICD-10-CM: Z3A.16, Date: ) 07/25/21 - 14 weeks gestation of (ICD-10-CM: Z3A.14, Date: ) 07/25/21 - Other specified health status (ICD-10-CM: Z78.9, Date: ) 07/25/21 - Underimmunization status (ICD-10-CM: Z28.3, Date: ) 07/25/21 - Diseases of the nervous system complicating , second trimester (ICD-10-CM: O99.352, Date: ) 07/25/21 - Other specified health status (ICD-10-CM: Z78.9, Date: 07/24/21) 07/25/21 - 14 weeks gestation of (ICD-10-CM: Z3A.14, Date: 07/25/21) 06/18/21 - 10 weeks gestation of (ICD-10-CM: Z3A.10, Date: 06/18/21) 06/12/21 - Other specified health status (ICD-10-CM: Z78.9, Date: 06/13/21) 06/12/21 - Constipation, unspecified (ICD-10-CM: K59.00, Date: 06/12/21) 05/22/21 - state, incidental (ICD-10-CM: Z33.1, Date: 05/22/21) 05/15/21 - Amenorrhea, unspecified (ICD-10-CM: N91.2, Date: ) 05/15/21 - Amenorrhea, unspecified (ICD-10-CM: N91.2, Date: 05/16/21) 05/14/21 - Migraine, unspecified, not intractable, without status migrainosus (ICD-10-CM: G43.909, Date: ) 05/14/21 - Migraine, unspecified, not intractable, without status migrainosus (ICD-10-CM: G43.909, Date: 05/14/21) 04/11/21 - Candidiasis of vulva and vagina (ICD-10-CM: B37.3, Date: 04/11/21) 04/11/21 - Other ovarian cyst, left side (ICD-10-CM: N83.292, Date: 04/11/21) 02/18/21 - Other specified irregular menstruation (ICD-10-CM: N92.5, Date: ) Flo Sadler DOB: [birth year] Delivery Summary No labor/delivery information has been documented Note: Items documented with '--' had no clinical data which qualified at time of report creation END OF REPORT Extracted from:Title: OB Visit Note 19w Author: RAAD FARRELL, AMADEO CABRERA Date: 08/27/21 1. G estation period, 19 weeks P t is doing well. See problem list. Anatomy scan ultrasound results reviewed with patient. Results pending, radiology called and alerted. Will message patient through portal with results. Pt is to schedule a follow up OB clinic visit f or 4 weeks. To MCU for any concerns or call clinic. Ordered: AFP Tetra [id number] 2. P regnant PROBLEM LIST 1. PROBLEM: N o ASA A SA? _ 2. PROBLEM: M igraines Awareness _ 3. PROBLEM: _ 4. PROBLEM: _ [1] 3. R ubella non-immune Extracted from:Title: OB Visit 14+5 Author: LAURA ZIMMERMAN CNM Date: 07/25/21 1. G estation period, 14 weeks P t is doing well. Pt had an early US with [facility] 18 JAN 2022. Confirmed with US today. Reviewed all OB lab results with patient if available. Any abnormals were explained. Otherwise normal. Discussed upcoming genetic screening with counseling on the risks and benefits of testing and possible need for further testing/evaluation based on test results. Her anatomy scan will be ordered at next visit and scheduled for 18-20 weeks. Discussed what to expect at upcoming appointments. SAB precautions Common Discomforts of second trimester reviewed, pain relief strategies discussed. Patient was encouraged to ask questions and all questions were answered to her apparent satisfaction. She was encouraged to seek emergency treatment for any concerns she might have in the ER b efore 20 weeks and MCU after 20 weeks. RTC in 4 weeks. 2. R ubella non-immune PROBLEM LIST 1. PROBLEM: N o ASA ASA? _ 2. PROBLEM: M igraines Awareness _ 3. PROBLEM: _ 4. PROBLEM: _ Ordered: Rubella IgG Antibody Orders: multivitamin, , 1 tab(s), Oral, Daily, # 100 tab(s), 3 total refill(s), Maintenance, 1 tab(s) Oral Daily, Pharmacy: [facility] AFP Tetra [id number] HIV-1/O/2 CDD Extracted from:Title: Telephone OB reg Author: JADE MORALES Date: 06/18/21 Gestation period, 10 weeks Extracted from:Title: Virtual Author: CESAR FLEMING NP Date: 06/12/21 1. C onstipation 2 5 year old female has been having trouble with constipation, currently . Discussed first line recommend increase water and fiber intake, if ineffective may try Metamucil OTC. Keep appointment with OB. Patient agrees with plan of care. Ordered: Waiver Services; Not Otherwise Specified (NOS) T2025 Extracted from:Title: Virtual- f/u lab Author: CESAR FLEMING NP Date: 05/22/21 1. P shiv C ontinue vitamins. Keep appointment with OB to establish care. Ordered: Waiver Services; Not Otherwise Specified (NOS) T2025 Orders: multivitamin, , 1 cap(s), Oral, Daily, # 100 cap(s), 3 total refill(s), Maintenance, 1 cap(s) Oral Daily, Pharmacy: [facility] [Federal Rx: #100 last filled 05/22/21] Extracted from:Title: Virtual - Migraines Author: CESAR FLEMING NP Date: 05/14/21 1. M igraine 25 year old female with migraines is ready to start a daily preventative medication because migraines have been becoming more frequent. We discussed medication options, she is wanting to conceive and due to this verapamil would be an appropriate choice if she were to become so we will start with verapamil extended release 120 mg daily. Recommend headache diary. Will also refill sumatriptan as needed. If you do become avoid the sumatriptan and just use tylenol, other medications could be considered if needed at that time. Follow up in 2 months or sooner if needed. Patient agrees with plan of care. Ordered: SUMAtriptan, See Instructions, Take 1 tablet by mouth at onset of migraine headache. May repeat dose after 2 hours if needed. Max of 100mg within 24 hours, # 18 tab(s), 1 total refill(s), Maintenance, Take 1 tablet by mouth at onset of migraine headache. May repea... verapamil, 1 tab(s), Oral, Daily, # 90 tab(s), 0 total refill(s), Maintenance, 1 tab(s) Oral Daily, Pharmacy: [facility] [Not filled] Waiver Services; Not Otherwise Specified (NOS) T2025 Extracted from:Title: Office Clinic Note Author: HUSSAIN PERALTA RN Date: 02/18/21 Missed period Extracted from:Title: Office Clinic Note Author: HUSSAIN PERALTA RN Date: 02/18/21 Missed period Extracted from:Title: Office Clinic Note Author: DICK LAUGHLIN NP Date: 01/10/21 1. C ontraception L eft arm landmarks identified and Nexplanon site identified. Area cleansed with chlorhexidine x2. 4 cc of 1% lidocaine injected under the skin and along the Nexplanon site and under it. A scalpel was used to make a 2-3 mm incision in the skin along the site of the Nexplanon. The Nexplanon was visualized and grabbed with tissue forceps and removed without difficulty. E BL < 1ml. P atient tolerated the procedure well. S nahomy Strips applied. A sterile pressure dressing was applied, wound care instructions reviewed. Patient would like to start OCP, medication ordered. Ordered: Loestrin 21 07/18 oral tablet, 1 tab(s), Oral, Daily, # 84 tab(s), 3 total refill(s), Maintenance, 1 tab(s) Oral Daily, Pharmacy: [facility] [Not filled] Sudafed 12-Hour 120 mg oral tablet, extended release, 1 tab(s), Oral, every 12 hr, PRN congestion, # 20 tab(s), 1 total refill(s), Maintenance, 1 tab(s) Oral every 12 hr,PRN:as needed for congestion, Pharmacy: [facility] [Not filled] 01/28/2025 [id number] Functional Status Combined list of recent functional and cognitive assessments recorded at [employer] and [employer] (VA).VA Functional [place] Measurement (FIM) Scale: 1 = Total Assistance (Subject = 0% +), 2 = Maximal Assistance (Subject = 25% +), 3 = Moderate Assistance (Subject = 50% +), 4 = Minimal Assistance (Subject = 75% +), 5 = Supervision, 6 = Modified [place] (Device), 7 = Complete [place] (Timely, Safely). Assessment Date/Time Source Assessment Type Assessment Skill Assessment Score Assessment Details No data available for this section
--- OUTSIDE RECORDS SUMMARY | 2025-01-27 19:41 | XMS_ITS | Encounter Summary ---
Author Organization [facility] Address [address] [place] [address] Care Team Providers Care Boiler Out Name Role Phone Unavailable Primary Care Provider Unavailabl e Encounter Details Date Type Department Care Team (Latest Contact Info) Description 01/11/2002 Outpatient Historical [facility] [place] [address] [place] [address] Cristina Lee MD NO ADDRESS ON FILE Acute nonsup otitis media (Primary Dx) Social History Tobacco Use Types Packs/Day Years Used Date Smoking Tobacco: Never Assessed Comments Unknown Sex and Gender Information Value Date Recorded Sex Assigned at Not on file 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
--- OUTSIDE RECORDS SUMMARY | 2025-01-27 19:41 | XMS_ITS | Encounter Summary ---
Author Organization [facility] Address [address] [place] [address] Care Team Providers Care Stock Driver Name Role Phone Unavailable Primary Care Provider Unavailabl e Encounter Details Date Type Department Care Team (Latest Contact Info) Description 06/20/2001 Outpatient Historical [facility] [place] [address] [place] [address] Cristina Lee MD NO ADDRESS ON FILE Acute nonsup otitis media (Primary Dx); ACUTE URI NOS Social History Tobacco Use Types Packs/Day Years Used Date Smoking Tobacco: Never Assessed Comments Unknown Sex and Gender Information Value Date Recorded Sex Assigned at Not on file 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
--- OUTSIDE RECORDS SUMMARY | 2025-01-27 19:41 | XMS_ITS | Encounter Summary ---
Author Organization [facility] Address [address] [place] [address] Care Team Providers Care Superintendent Refuse Disposal Name Role Phone Unavailable Primary Care Provider Unavailabl e Encounter Details Date Type Department Care Team (Latest Contact Info) Description 07/27/2001 Outpatient Historical [facility] [place] [address] [place] [address] Cristina eLe MD NO ADDRESS ON FILE Acute nonsup otitis media (Primary Dx); ACUTE URI NOS Social History Tobacco Use Types Packs/Day Years Used Date Smoking Tobacco: Never Assessed Comments Unknown Sex and Gender Information Value Date Recorded Sex Assigned at Not on file 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
--- OUTSIDE RECORDS SUMMARY | 2025-01-27 19:41 | XMS_ITS | Encounter Summary ---
Author Organization [facility] Address [address] [place] [address] Care Team Providers Care Crt Name Role Phone Unavailable Primary Care Provider Unavailabl e Encounter Details Date Type Department Care Team (Latest Contact Info) Description 08/03/2003 Outpatient Historical [facility] [place] [address] [place] [id number] Cristina Lee MD NO ADDRESS ON FILE Acute nonsup otitis media (Primary Dx); ACUTE PHARYNGITIS; ACUTE BRONCHITIS; IMPACTED CERUMEN Social History Tobacco Use Types Packs/Day Years Used Date Smoking Tobacco: Never Assessed Comments Unknown Sex and Gender Information Value Date Recorded Sex Assigned at Not on file 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
--- OUTSIDE RECORDS SUMMARY | 2025-01-27 19:41 | XMS_ITS | Clinical Summary ---
Author Organization [facility] rt Address [address] [place] [address] Care Team Providers Care Pediatric Dental Assistant Name Role Phone Unavailable Primary Care Provider Unavailabl e Allergies No known active allergies Medications etonogestreL (Nexplanon) 68 mg Implant Inject by subcutaneous injection. 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 Gender Identity Not on file Sexual Orientation Not on file Last Filed Vital Signs Vital Sign Reading Time Taken Comments Blood Pressure 98/62 11/12/2020 5:49 PM CDT Pulse 88 11/12/2020 5:49 PM CDT Temperature 37.2 C (99 F) 11/12/2020 5:49 PM CDT Respiratory Rate 16 11/12/2020 5:49 PM CDT Oxygen Saturation 98% 11/12/2020 5:49 PM CDT Inhaled Oxygen Concentration - - Weight 78.9 kg (174 lb) 11/12/2020 5:49 PM CDT Height 160 cm (5' 3 ) 11/12/2020 5:49 PM CDT Body Mass Index 30.82 11/12/2020 5:49 PM CDT Plan of Treatment Health Maintenance Due Date Last Done Comments HPV VACCINES (1 - 3-dose series) 12/07/2011 DTAP/TDAP/TD VACCINES (2 - Tdap) 12/07/2015 12/08/19 02 HEPATITIS B VACCINES (1 of 3 - 19+ 3-dose series) 11/27 CERVICAL CANCER SCREENING 2017 HPV/Cotest (21-29) 2017 PAP SMEAR 2017 INFLUENZA VACCINE (#1) 2025 Insurance * Guarantor: FLO MONTIEL Account Type Relation to Patient Date of Phone Billing Address Personal/Family [address]
--- OUTSIDE RECORDS SUMMARY | 2025-01-27 19:41 | XMS_ITS | Encounter Summary ---
Author Organization [facility] Address [address] [place] [address] Care Team Providers Care Fish Header Name Role Phone Unavailable Primary Care Provider Unavailabl e Encounter Details Date Type Department Care Team (Latest Contact Info) Description 02/28/2001 Outpatient Historical [facility] [place] [address] [place] [phone] Sanjiv Ashraf MD [address] [place] [phone] Enterobiasis (Primary Dx) Social History Tobacco Use Types Packs/Day Years Used Date Smoking Tobacco: Never Assessed Comments Unknown Sex and Gender Information Value Date Recorded Sex Assigned at Not on file Legal 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
--- OUTSIDE RECORDS SUMMARY | 2025-01-27 19:41 | XMS_ITS | Encounter Summary ---
Author Organization [facility] Address [address] [place] [address] Care Team Providers Care Bank Cashier Name Role Phone Unavailable Primary Care Provider Unavailabl e Encounter Details Date Type Department Care Team (Latest Contact Info) Description 08/05/2002 Outpatient Historical [facility] Spec [facility] [place] [address] [facility] [address] [place] [phone] Abigail Blood, RUBBER VULCANIZING MACHINE OPERATOR NO ADDRESS ON FILE CELLULITIS OF LEG (Primary Dx); SURGERY FOLLOWUP, UNSPEC Social History Tobacco Use Types Packs/Day Years Used Date Smoking Tobacco: Never Assessed Comments Unknown Sex and Gender Information Value Date Recorded Sex Assigned at Not on file 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
--- OUTSIDE RECORDS SUMMARY | 2025-01-27 19:41 | XMS_ITS | Encounter Summary ---
Author Organization [facility] Address [address] [place] [address] Care Team Providers Care Accordion Repairer Name Role Phone Unavailable Primary Care Provider Unavailabl e Encounter Details Date Type Department Care Team (Latest Contact Info) Description 10/10/2002 Outpatient Historical [facility] [place] [address] [place] [address] Cristina Lee MD NO ADDRESS ON FILE CELLULITIS OF BUTTOCK (Primary Dx) Social History Tobacco Use Types Packs/Day Years Used Date Smoking Tobacco: Never Assessed Comments Unknown Sex and Gender Information Value Date Recorded Sex Assigned at Not on file Legal Sex Female 4:[address] HELPER Gender Identity Not on file Sexual Orientation Not on file documented as of this encounter Plan of Treatment Not on file documented as of this encounter Visit Diagnoses Diagnosis Cellulitis and abscess of buttock- Primary documented in this encounter
--- OUTSIDE RECORDS SUMMARY | 2025-01-27 19:41 | XMS_ITS | Encounter Summary ---
Author Organization [facility] Address [address] [place] [address] Care Team Providers Care Armor Reconnaissance Vehicle Driver Name Role Phone Unavailable Primary Care Provider Unavailabl e Encounter Details Date Type Department Care Team (Latest Contact Info) Description 12/07/2001 Outpatient Historical [facility] [place] [address] [place] [address] Cristina Lee MD NO ADDRESS ON FILE Routine child health exam (Primary Dx) Social History Tobacco Use Types Packs/Day Years Used Date Smoking Tobacco: Never Assessed Comments Unknown Sex and Gender Information Value Date Recorded Sex Assigned at Not on file 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
--- OUTSIDE RECORDS SUMMARY | 2025-01-27 19:41 | XMS_ITS | Encounter Summary ---
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
--- OUTSIDE RECORDS SUMMARY | 2025-01-27 19:41 | XMS_ITS | Clinical Summary ---
Author Organization [facility] Address [address] [place] [address] Care Team Providers Care Fire Chief Name Role Phone Unavailable Primary Care Provider Unavailabl e Allergies No known active allergies Medications No known medications Active Problems Estimated Date of Delivery Comme nts Yes 01/18/2022 No known active problems Encounters Date Type Department Care Team Description 01/11/2025 External Device Data ST[facility] ABSTRACTION Provider, Abstract 01/10/2025 External Device Data [facility] ABSTRACTION Provider, Abstract 01/05/2025 10:00 AM CDT Office Visit [facility] Podiatry-[facility] [place] [address] [place] [address] Ephraim Mcbride, DPM Paronychia of great toe of right foot (Primary Dx); Ingrown nail of great toe of right foot; Onychomycosis 12/27/2024 External Device Data [facility] ABSTRACTION Provider, Abstract from Last 3 Months Immunizations Immunization Administration Dates Next Due (M-M-R II/PRIORIX)(12 MO UP) MEASLES, MUMPS AND RUBELLA VIRUS VACCINE, 0.5 ML IM/SUBCUT 12/07/2001 Dt Dtp Dtap Vaccine 12/07/2001 IPV/OPV 12/07/2001 Social History Tobacco Use Types Packs/Day Years Used Date Smoking Tobacco: Never Smokeless Tobacco: Never Tobacco Cessation:Counseling Given: Not Answered Estimated Date of Delivery Comme nts Yes 01/18/2022 Sex and Gender Information Value Date Recorded Sex Assigned at Not on file Legal Sex Female 2:49 AM INDUSTRIAL ENGINEERING TECHNICIAN Gender Identity Not on file Sexual Orientation Not on file Last Filed Vital Signs Vital Sign Reading Time Taken Comments Blood Pressure 122/77 01/05/2025 10:01 AM CDT Pulse 77 01/05/2025 10:01 AM CDT Temperature 36.2 C (97.1 F) 01/27/2022 6:00 PM CDT Respiratory Rate 16 01/27/2022 6:00 PM CDT Oxygen Saturation 99% 01/05/2025 10:01 AM CDT Inhaled Oxygen Concentration - - Weight 81.6 kg (180 lb) 01/05/2025 10:01 AM CDT Height 160 cm (5' 3 ) 12/24/2023 3:05 PM CDT Body Mass Index 31.89 12/24/2023 3:05 PM CDT Plan of Treatment Health Maintenance Due Date Last Done Comments HPV VACCINES (1 - 3-dose series) 12/07/2011 HEPATITIS B VACCINES (1 of 3 - 19+ 3-dose series) 12/07/2015 CERVICAL CANCER SCREENING 2017 HPV/Cotest (21-29) 2017 PAP SMEAR 2017 INFLUENZA VACCINE (#1) 2025 04/18/2019 DTAP/TDAP/TD VACCINES (4 - T d or Tdap) 12/14/2031 12/13/2021, 06/30/2019, 12/07/2001 RSV VACCINE (60+ or ) (1 - 1-dose 75+ series) 12/07/2071 Insurance [employer] PLUS [id number] [address] [place] [id number] RX [facility] Express RX [employer]OSS[employer] Medicaid RX [facility] [employer]
--- OUTSIDE RECORDS SUMMARY | 2025-01-27 19:41 | XMS_ITS | Encounter Summary ---
Author Organization [facility] Address [address] [place] [address] Care Team Providers Care Electric Shipyard Operator Name Role Phone Unavailable Primary Care Provider Unavailabl e Encounter Details Date Type Department Care Team (Latest Contact Info) Description 11/17/2003 Outpatient Historical [facility] [place] [address] [place] [address] Cristina Lee MD NO ADDRESS ON FILE Acute nonsup otitis media (Primary Dx); ACUTE PHARYNGITIS; UNSPECIFIED VIRAL INFECTION Social History Tobacco Use Types Packs/Day Years Used Date Smoking Tobacco: Never Assessed Comments Unknown Sex and Gender Information Value Date Recorded Sex Assigned at Not on file 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
--- OUTSIDE RECORDS SUMMARY | 2025-01-27 19:41 | XMS_ITS | Encounter Summary ---
Author Organization [facility] Address [address] [place] [address] Care Team Providers Care Sports Leadership Instructor Name Role Phone Unavailable Primary Care Provider Unavailabl e Encounter Details Date Type Department Care Team (Late st Contact Info) Description 07/24/2002 Outpatient Historical [facility] [place] [address] [place] [address] Social History Tobacco Use Types Packs/Day Years Used Date Smoking Tobacco: Never Assessed Comments Unknown Sex and Gender Information Value Date Recorded Sex Assigned at Not on file 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
--- OUTSIDE RECORDS SUMMARY | 2025-01-27 19:41 | XMS_ITS | Encounter Summary ---
Author Organization [facility] Address [address] [place] [address] Care Team Providers Care Strategy Manager Name Role Phone Unavailable Primary Care Provider Unavailabl e Encounter Details Date Type Department Care Team (Latest Contact Info) Description 08/03/2003 Outpatient Historical [facility] [place] [address] [place] [phone] Cristina Lee MD NO ADDRESS ON FILE COUGH (Primary Dx) Social History Tobacco Use Types Packs/Day Years Used Date Smoking Tobacco: Never Assessed Comments Unknown Sex and Gender Information Value Date Recorded Sex Assigned at Not on file 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
--- OUTSIDE RECORDS SUMMARY | 2025-01-27 19:41 | XMS_ITS | Encounter Summary ---
Author Organization [facility] Address [address] [place] [address] Care Team Providers Care Safety Equipment Tester Name Role Phone Unavailable Primary Care Provider Unavailabl e Encounter Details Date Type Department Care Team (Latest Contact Info) Description 07/29/2002 Outpatient Historical [facility] [place] [address] [facility] [address] [place] [phone] Abigail Blood, MANAGER SCHEDULING NO ADDRESS ON FILE CELLULITIS OF LEG (Primary Dx); SURGERY FOLLOWUP, UNSPEC Social History Tobacco Use Types Packs/Day Years Used Date Smoking Tobacco: Never Assessed Comments Unknown Sex and Gender Information Value Date Recorded Sex Assigned at Not on file 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
--- OUTSIDE RECORDS SUMMARY | 2025-01-27 19:41 | XMS_ITS | Encounter Summary ---
Author Organization [facility] Address [address] [place] [address] Care Team Providers Care Business Machines Teacher Name Role Phone Unavailable Primary Care Provider Unavailabl e Encounter Details Date Type Department Care Team (Latest Contact Info) Description 03/08/[address] 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
--- NOTE | 2025-01-27 19:51 | CTR_ITS ---
PROCEDURE INFORMATION: Exam: CT Abdomen And Pelvis Without Contrast Exam date and time: 01/27/2025 8:35 PM Age: 29 years old Clinical indication: Abdominal pain; Prior surgery; Surgery date: 6+ months; Surgery type: Appy; C/O left flank pain; Additional info: Left flank/llq pain TECHNIQUE: Imaging protocol: Computed tomography of the abdomen and pelvis without contrast. Radiation optimization: All CT scans at this facility use at least one of these dose optimization techniques: automated exposure control; mA and/or kV adjustment per patient size (includes targeted exams where dose is matched to clinical indication); or iterative reconstruction. COMPARISON: No relevant prior studies available. RADIATION DOSE METRICS: Total DLP (mGy-cm): 703.19 FINDINGS: Lungs: Visualized lung bases appear clear. Liver: Normal. No mass. Gallbladder and biliary ducts: Normal. No calcified stones. No ductal dilation. Pancreas: Normal. No ductal dilation. Spleen: Normal. No splenomegaly. Adrenal glands: Normal. No mass. Kidneys and ureters: A couple of punctate nonobstructing renal calculi are seen lower pole left kidney. A 4 mm distal left ureteral calculus is seen adjacent to the UVJ with secondary moderate obstructive uropathy on the left. No abnormal perinephric stranding or perinephric fluid collection. Kidneys appear unremarkable otherwise for noncontrast exam. Stomach and bowel: Previous appendectomy, with postsurgical clips medial cecum. No bowel obstruction. No significant bowel thickening. Bowel appears unremarkable for noncontrast exam. No mesenteric stranding. Appendix: See Stomach and bowel finding. Intraperitoneal space: No free fluid or ascites or fluid collection. No free air. Vasculature: Abdominal aorta appears unremarkable in caliber. No aneurysmal dilatation. Lymph nodes: No significant lymph node enlargement or lymphadenopathy. Urinary bladder: Urinary bladder is suboptimally distended and otherwise unremarkable. Reproductive: Unremarkable as visualized. Bones/joints: Bone windows show no acute osseous abnormality. Soft tissues: Unremarkable. CT/CT kidney stone [id number] IMPRESSION: 1. Punctate nonobstructing renal calculus lower pole left kidney. 2. 4 mm distal left ureteral calculus adjacent to the UVJ with secondary moderate obstructive uropathy on the left. 3. Previous appendectomy.
--- NOTE | 2025-01-27 19:53 | ED_ITS ---
HPI - Abdominal Pain 2 General: Chief Complaint: Abdominal Pain Stated Complaint: flank pain n/ Time Seen by Provider: 01/27/25 19:30 Source: patient Mode of arrival: ambulatory Limitations: no limitations History of Present Illness: Patient is a 29-year-old female who presents the emergency department complaining of left flank and left lower abdominal tenderness beginning today. She states that 2 weeks ago she had a CT scan without contrast performed due to isolated hematuria, which found 2 small stones in her kidney. She states that the hematuria has resolved but today she had the sudden onset of pain. She also reports a history of kidney stones and states that this feels similar. Notes nausea secondary to the pain, but is not running any fevers and has not vomited. States that the pain primarily at this time is in the left lower abdomen but she is still having pain radiating up the flank. No hematuria or dysuria at this time. No vaginal odor or discharge. Has been taking [id number] pain medications, no relief. 10 out of 10 pain at this time, states that any movement makes the pain worse. Her vitals are within normal limits. No history of lithotripsy, stents, or any procedural removal of stones. History of appendectomy. MD elicited complaint: abdominal pain Pertinent past history: kidney stones Onset (ago): hour(s) Pain Consistency: constant Location: LLQ and L flank Severity: severe Quality: stabbing and sharp Radiation: L flank Exacerbating factors: movement Associated Symptoms: Reports nausea; Denies bloating, change in stool character, chills, constipation, diarrhea, dysuria, fever(s), hematochezia and vomiting Treatments prior to arrival: NSAIDs Related Data Previous Rx's ?Medication ?Instructions ?Recorded ondansetron 4 mg disintegrating 4 mg PO TID PRN nausea and 01/27/25 tablet vomiting #30 tabs Allergies Allergy/AdvReac Type Severity Reaction Status Date / Time No Known Allergies Allergy Verified 01/27/25 19:34 Review of Systems 2 General: Reports: 10 or more systems reviewed and unremarkable except in HPI and below Const: Denies: fever(s), chills, change in appetite, change in weight or diaphoresis ENMT: Denies: throat pain or hoarseness Card: Denies: chest pain, palpitations or lightheadedness Resp: Denies: dyspnea, productive cough or wheezing GI: Reports: abdominal pain and nausea; Denies: vomiting, diarrhea, constipation, bloating, change in stool character or hematochezia : Reports: flank pain; Denies: difficulty voiding, dysuria, urinary frequency or urinary urgency Musc: Denies: neck pain or back pain Skin/Breast: Denies: rash or new lesions Neuro: Denies: headache(s) or dizziness Physical Exam 2 Const: COMMON NORMALS: average body habitus, patient oriented x3, no limitations, healthy appearing, alert and well nourished GENERAL APPEARANCE: cooperative ORIENTATION/CONSCIOUSNESS: Yes awake OTHER: Appears uncomfortable secondary to pain HENMT: COMMON NORMALS: normocephalic, atraumatic, hearing grossly normal bilaterally, external ears normal, Normal external nose present, Normal nasal mucous membranes and turbinates present and moist oral mucous membranes HEAD & SCALP: normocephalic and atraumatic NOSE: Normal external nose present and Normal nasal mucous membranes and turbinates present EXTERNAL EAR: Yes external ears normal Eye: COMMON NORMALS: Equal, round and reactive pupils present, EOMs intact bilaterally, conjunctivae normal and normal visual jo by confrontation C ONJUNCTIVA: Yes conjunctivae normal PUPIL: Yes Equal, round and reactive pupils present Neck/C-Spine: COMMON NORMALS: full ROM, supple, no meningeal signs and no JVD Resp: COMMON NORMALS: normal respiratory effort, No retractions, No use of accessory muscles and clear to auscultation bilaterally AUSCULTATION: clear to auscultation bilaterally, no crackles, no rales, no rhonchi and no wheezes Cardio: COMMON NORMALS: no JVD, regular rate, regular rhythm, S1 normal heart sound present, S2 normal heart sound present, No gallops present (Cardio), No clicks present (Cardio), No murmurs present (Cardio), No rub (Cardio) and Peripheral pulses 2+ throughout RATE: regular rate RHYTHM: regular rhythm HEART SOUNDS: S1 normal heart sound present and S2 normal heart sound present PERIPHERAL PULSES: Peripheral pulses 2+ throughout GI: COMMON NORMALS: Normal to inspection, nondistended, normoactive bowel sounds present, Soft to palpation, No hepatosplenomegaly present and no masses AUSCULTATION: Yes normoactive bowel sounds PALPATION: Yes Soft to palpation, Yes Tenderness to palpation present (GI) Details: LLQ, No Guarding due to palpation present (GI), No Rigid due to palpation and Yes No hepatosplenomegaly present RECTAL EXAM: deferred : BLADDER/KIDNEY EXAM: Yes CVA tenderness on the left Back/Pelvis: GENERAL BACK: Yes CVA tenderness Extremity: COMMON NORMALS: normal to inspection and full ROM Neuro: COMMON NORMALS: patient oriented x3, moves all extremities, no focal motor deficits and no sensory deficits noted SENSORIUM/ORIENTATION: Yes alert MENINGEAL SIGNS: Yes no meningeal signs Psych: COMMON NORMALS: mental status grossly normal, cooperative and speech normal SPEECH: Yes normal speech Skin: COMMON NORMALS: no rashes or lesions noted GENERAL SKIN EXAM: no rashes or lesions noted Course 2 Vital Signs: Vital signs: Vital Signs Temperature 97.8 F 01/27/25 19:30 Pulse Rate 67 01/27/25 20:10 Respiratory Rate 17 01/27/25 20:10 Blood Pressure 124/78 01/27/25 20:10 Pulse Oximetry 98 01/27/25 20:10 Oxygen Delivery Me thod Room Air 01/27/25 20:10 MDM - Abdominal Pain Medical Decision Making Patient presenting for acute onset left flank and left lower abdomen pain. 2 weeks ago diagnosed with renal stones, also has a personal history of passing kidney stones noting this pain feels similar. Nausea also reported, she is not reporting any fevers or vomiting. Vitals have been stable. Her lab work was unremarkable for any elevation or white count or signs of acute kidney injury. Urine showed blood, but was not overtly infectious. CT does confirm a 4 mm stone at the left UVJ, with mild to moderate obstructive features. She is given Flomax here in the emergency department, upon recheck after receiving fentanyl and Toradol for pain she notes that she feels quite a bit better. Nausea has also been controlled. Due to the size of the stone and anatomical location, feel that this is safe to treat at home, patient agrees with this plan. She has seen urology before in [place], will resend referral for reevaluation. She is informed to return with any fevers, worsening of pain, vomiting, inability to urinate or gross hematuria. Sent home with a couple of hydrocodone for breakthrough pain and Zofran being sent to the pharmacy. Lab Data 01/27/25 19:59 01/27/25 19:59 Labs/Radiology: Radiology Impressions Abdomen/Pelvis CT 01/27/25 19:51 IMPRESSION: 1. Punctate nonobstructing renal calculus lower pole left kidney. 2. 4 mm distal left ureteral calculus adjacent to the UVJ with secondary moderate obstructive uropathy on the left. 3. Previous appendectomy. Laboratory Results WBC 5.62 10^3/uL (3.29-11.43) 01/27/25 19:59 RBC 5.10 10^6/uL (3.85-5.65) 01/27/25 19:59 Hgb 14.20 g/dL (11.27-16.99) 01/27/25 19:59 Hct 42.4 % (36-47) 01/27/25 19:59 MCV 83.1 fl (85-98) L 01/27/25 19:59 MCH 27.8 pg (27-33) 01/27/25 19:59 MCHC 33.5 g/dL (30-55) 01/27/25 19:59 RDW 13.1 % (12.1-15.1) 01/27/25 19:59 Plt Count 204 10^3/cmm (157-399) 01/27/25 19:59 MPV 9.1 fL (7.4-10.4) 01/27/25 19:59 Neut % (Auto) 50.7 % 01/27/25 19:59 Lymph % (Auto) 36.3 % 01/27/25 19:59 Greene % (Auto) 8.9 % 01/27/25 19:59 Eos % (Auto) 3.4 % 01/27/25 19:59 Baso % (Auto) 0.5 % 01/27/25 19:59 Neut # (Auto) 2.85 10^3/uL (1.8-7.7) 01/27/25 19:59 Lymph # (Auto) 2.0 10^3/uL (0.8-4.8) 01/27/25 19:59 Greene # (Auto) 0.5 10^3/uL (0.2-0.9) 01/27/25 19:59 Eos # (Auto) 0.2 10^3/uL (0.0-0.8) 01/27/25 19:59 Baso # (Auto) 0.0 10^3/uL (0.0-0.1) 01/27/25 19:59 Nucleated RBC % (auto) 0 % 01/27/25 19:59 Nucleated RBCs # 0.0 /100WBC 01/27/25 19:59 Sodium 141 mmol/L (136-145) 01/27/25 19:59 Potassium 3.8 mmol/L (3.5-5.1) 01/27/25 19:59 Chloride 104 mmol/L (98-107) 01/27/25 19:59 Carbon Dioxide 25 mmol/L (22-29) 01/27/25 19:59 Anion Gap 15.8 (5-19) 01/27/25 19:59 BUN 15 mg/dL (6-20) 01/27/25 19:59 Creatinine 0.8 mg/dL (0.5-0.9) 01/27/25 19:59 GFR Calculation 85.4 mL/min (90-130) L 01/27/25 19:59 Glucose 101 mg/dL (65-115) 01/27/25 19:59 Calculated Osmolality 293 mOsm/kg (285-295) 01/27/25 19:59 Calcium 8.8 mg/dL (8.5-10.5) 01/27/25 19:59 Total Bilirubin 0.5 mg/dL (0.15-1.2) 01/27/25 19:59 AST 29 U/L (0-32) 01/27/25 19:59 ALT 56 U/L (0-33) H 01/27/25 19:59 Alkaline Phosphatase 92 U/L (35-105) 01/27/25 19:59 Total Protein 7.0 g/dL (6.6-8.7) 01/27/25 19:59 Albumin 4.2 g/dL (3.5-5.2) 01/27/25 19:59 Globulin 2.8 g/dL (1.3-4.6) 01/27/25 19:59 Lipase 37 U/L (13-60) 01/27/25 19:59 HCG, Qual Negative (Negative) 01/27/25 19:59 Urine Color Purvis (Yellow) A 01/27/25 20:52 Urine Appearance Cloudy (CLEAR) A 01/27/25 20:52 Urine pH 5.5 (5-7) 01/27/25 20:52 Ur Specific Jones 1.024 (1.005-1.030) 01/27/25 20:52 Urine Protein 1+ (Negative) A 01/27/25 20:52 Urine Glucose (UA) Negative (Normal) 01/27/25 20:52 Urine Ketones Trace (Negative) 01/27/25 20:52 Urine Blood 3+ (Negative) A 01/27/25 20:52 Urine Nitrate Negative (Negative) 01/27/25 20:52 Urine Bilirubin Negative (Negative) 01/27/25 20:52 Urine Urobilinogen 1.0 mg/dL (Negative) 01/27/25 20:52 Ur Leukocyte Esterase Trace (Negative) A 01/27/25 20:52 Urine RBC >100 /hpf (0-2) H 01/27/25 20:52 Urine WBC 6-10 /hpf (0-5) 01/27/25 20:52 Ur Squamous Epith Cells 6-10 /hpf (0-5) 01/27/25 20:52 Amorphous Sediment Not Reportable 01/27/25 20:52 Urine Bacteria None seen /hpf (NONE) 01/27/25 20:52 Hyaline Casts 2.87 /lpf 01/27/25 20:52 All radiology interpretation(s) finalized by discharge Discharge Plan Discharge Patient Disposition: Home Clinical Impression: Ureterolithiasis Condition: Stable Prescriptions: New ondansetron 4 mg tablet,disintegrating 4 mg PO TID PRN (Reason: nausea and vomiting) Qty: 30 0RF Discharge Orders: Discharge ED (Routine); Ordered 01/27/25 Ordered By: Barry German Patient Instructions: Opioid Safety, Pain Management, Patient Portal & [facility] Instructions Activity Restrictions/Additional Instructions: Ureterolithiasis Discharge Instructions Diagnosis: You have been diagnosed with a kidney stone (ureterolithiasis) in your left ureter. This is a common condition where a stone forms in the kidney and moves into the tube (ureter) that drains urine from the kidney to the bladder. Your CT scan confirmed the diagnosis, and your urine showed no signs of infection. Treatment Given in the Emergency Department: - Tamsulosin (Flomax): This medication helps relax the muscles in your ureter, which can make it easier for the stone to pass and may reduce pain. Medical expulsive therapy with tamsulosin is a well-established treatment for ureteral stones and can increase the chance of passing the stone without surgery. - Pain Control: Your pain was managed with ketorolac (a nonsteroidal anti- inflammatory drug) and fentanyl (a strong pain reliever) while in the emergency department. You were prescribed hydrocodone for pain at home, as needed, and ondansetron for nausea. What to Expect at Home: - Most kidney stones of this type will pass on their own with time. This process can take several days to a few weeks. - Use hydrocodone only as needed for severe pain. Most patients require only a few doses, and pain typically improves as the stone moves closer to the bladder. - Take ondansetron as needed for nausea. Hydrocodone and : - Hydrocodone is considered compatible with when used at low doses for a short period, as in your case (only two pills prescribed). The amount of hydrocodone that passes into breast milk is small, and short-term use is unlikely to cause harm to your baby. However, monitor your baby for increased sleepiness, difficulty feeding, or limpness. If any of these occur, seek medical attention immediately. - Avoid taking more than the prescribed amount, and do not use leftover pills for future pain. Other Instructions: - Drink fluids as you normally would; there is no evidence that drinking extra fluids will help the stone pass faster, but staying hydrated is important. - Strain your urine if possible to catch the stone for analysis. - You have been referred to a urologist for follow-up. It is important to attend this appointment to confirm that the stone has passed and to discuss prevention of future stones. - Watch for signs of infection or complications: fever, chills, worsening pain, vomiting, or inability to urinate. If any of these occur, seek medical care immediately. When to Return to the Emergency Department: - Fever (temperature over 100.4?F / 38?C) - Severe pain not controlled by your medications - Vomiting and inability to keep fluids down - Blood in urine that is heavy or does not improve - Difficulty urinating or inability to urinate Summary: Your kidney stone is being managed safely at home with medications to help it pass and to control pain. Most stones pass without surgery. You are being referred to a urologist for follow-up care. Short-term use of hydrocodone is considered safe while , but use only as prescribed and monitor your baby for any changes. If you have any questions or concerns, contact your healthcare provider. Print Language: Citizen Of [place] Coding Level of Care Code ED Search Consultant for Aubrie Rust
[2025-01-27 20:03] VITALS: RESP 17
[2025-01-27] MEDS: fentaNYL 50 mcg/mL INJ 2mL IVP (20:03)
[2025-01-27] MEDS: ondansetron 2 mg/ML SDV 2 mL 4 MG IVP (20:03)
[2025-01-27 20:04] LABS: Hematocrit 42.4 % (36-47); Hemoglobin 14.20 g/dL (11.27-16.99); Mean Corpuscular HGB Conc 33.5 g/dL (30-55); Mean Corpuscular Hemoglobin 27.8 pg (27-33); Mean Corpuscular Volume 83.1 fl (85-98); Nucleated Red Blood Cells % 0 %; Platelet Count 204 10^3/cmm (157-399); Red Blood Count 5.10 10^6/uL (3.85-5.65); White Blood Count 5.62 10^3/uL (3.29-11.43)
[2025-01-27 20:10] VITALS: BP 124/78; PULSE 67; RESP 17; O2SAT 98
[2025-01-27 20:21] LABS: HCG, Serum Qual Negative (Negative)
[2025-01-27 20:25] LABS: Alanine Aminotransferase 56 U/L (0-33); Albumin Level 4.2 g/dL (3.5-5.2); Alkaline Phosphatase 92 U/L (35-105); Anion Gap 15.8 (5-19); Aspartate Amino Transferase 29 U/L (0-32); Blood Urea Nitrogen 15 mg/dL (6-20); Calcium 8.8 mg/dL (8.5-10.5); Carbon Dioxide 25 mmol/L (22-29); Chloride 104 mmol/L (98-107); Creatinine Clr Calc Pharmacy 105.9411; Globulin 2.8 g/dL (1.3-4.6); Glucose 101 mg/dL (65-115); Lipase 37 U/L (13-60); Osmolality Calculated 293 mOsm/kg (285-295); Potassium 3.8 mmol/L (3.5-5.1); Sodium 141 mmol/L (136-145); Total Protein 7.0 g/dL (6.6-8.7)
[2025-01-27 21:03] LABS: Glucose Urine UA Negative (Normal); Nitrate Urine Negative (Negative); Specific Gravity, Urine 1.024 (1.005-1.030)
[2025-01-27 21:08] LABS: Add Urine Microscopic? YES
[2025-01-27] MEDS: HYDROcodone-acetaminophen 5-325 mg Tablet 2 TAB PO (22:21)
[2025-01-27 22:30] VITALS: BP 124/71; PULSE 76; RESP 16; O2SAT 96
--- NOTE | 2025-01-30 08:32 | DCPLANNER ---
referral packet faxed and images pushed to diana
== END 2025-01-27 22:28 | disposition home or self-care (01) ==
PROVIDERS: Emergency Provider Physician Assistant
DX: N20.1 Calculus of ureter (principal)
CPT/HCPCS: 36415; 74176; 80053; 81001; 83690; 84703; 85025; 87086; 96361; 96374; 96375; 99285; J1885; J2405; J3010; J7030; J9999